=== PATIENT | female | born 1965 | race Caucasian/White ===

== ENCOUNTER 2018-02-15 05:33 | Day surgery (SDC) | payer BC ==
[2018-02-01 15:44] VITALS: Ht 177.8 cm; Wt 68.2 kg
[~2018-02-15] VITALS: Ht 177.8 cm; Wt 68.2 kg
[~2018-02-15 05:33] MED LIST: BIOTCAP2 PO; CALC600T9 PO; FERR1TAB23 PO; LEVO1IUD2 VAGRING; MULT-506 PO; ONDA-170 PO
[2018-02-15] MEDS ORDERED: CEFAZOLIN 2000MG IV PUSH 15 ML IV SCH (06:00)
[2018-02-15] MEDS ORDERED: LACTATED RINGER'S 1000ML 1,000 ML IV SCH (06:00)
[2018-02-15 06:03] VITALS: BP 123/59; PULSE 71; TEMP 37.3; O2SAT 100
[2018-02-15] MEDS ORDERED: LIDOCAINE HCL 1% 20 ML VIAL ONE (06:33)
[2018-02-15] MEDS ORDERED: BUPIVACAINE 0.5 % 5 MG/1 ML MPF 30ML VIAL ONE (06:34)
[2018-02-15] MEDS ORDERED: BACITRACIN OINT 15 GM TUBE ONE (06:34)
[2018-02-15] MEDS ORDERED: MIDAZOLAM HCL 1 MG/ML 2ML VIAL ONE (06:37)
[2018-02-15] MEDS ORDERED: FENTANYL CITRATE INJ 50 MCG/1 ML 2 ML VIAL ONE (06:37)
[2018-02-15] MEDS ORDERED: PROPOFOL IV EMULSION 10 MG/ML 20 ML VIAL ONE ×2 (06:44→07:15)
--- NOTE | 2018-02-15 06:44 | History & Physical Bridge Note ---
H&P Re-Evaluation Bridge Note: I have examined the patient, reviewed the History & Physical and in the interval since the performance of the History & Physical I have noted the following changes of clinical significance: No changes noted
--- NOTE | 2018-02-15 07:41 | [facility] Post Operative Brief Note ---
Immediate Operative Summary Operative Date February 15, 2018. Pre-Operative Diagnosis Lymphoma; Need for Infusaport Post-Operative Diagnosis Lymphoma; Need for Infusaport Procedure(s) Performed Left Infusaport Insertion on left subclain vein Surgeon Dr Hummel Swing Manager Surgeon(s) Armida Rand PA-C Estimated Blood Loss 5ml Findings Consistent with Post-Op Diagnosis Fluids (cc crystalloids) 500ml Specimens None per surgeon Drains None Anesthesia Type Local Complication(s) none Disposition Accompanied Pt To Recover: yes Disposition: Recovery Room / PACU
[2018-02-15 07:50] VITALS: BP 119/56; PULSE 75; TEMP 36.5; O2SAT 100
[2018-02-15] MEDS ORDERED: OXYC-57 PO (07:53)
--- NOTE | 2018-02-15 07:58 | Discharge Instructions ---
Discharge Instructions Date of Service February 15, 2018. 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 Instructions / Follow-Up Instructions / Follow-Up You may shower in 4 days, sponge bath and wash hair in meantime. Try to keep dressing clean and dry for 4 days and then remove. Leave steri strips on incision for 7 days and then remove. If they plan to use your port for chemotherapy before 4 days that is okay. They will replace dressing. Just keep clean,dry, and covered. You will be given narcotic pain medication for moderate to severe pain. Take as directed. This medication may make you drowsy and can cause constipation. To combat constipation: -Drink plenty of water daily - May take OTC stool softener such as Colace - May take gentle laxative or prune juice if needed If you do not feel you need the narcotic pain medication, you may take extra strength Tylenol or Ibuprofen as needed for pain. Follow-up in surgical office as scheduled, please call office at [phone] to make an appointment if you do not already have one Current Hospital Diet Patient's current hospital diet: Discharge Diet Recommended Diet: Regular Diet Procedures Procedures Performed: Left Infusaport Insertion on left subclain vein Pending Studies Studies pending at discharge: no Medical Emergencies . Who to Call and When: Medical Emergencies: If at any time you feel your situation is an emergency, please call 911 immediately. . Non-Emergent Contact Non-Emergency issues call your: Primary Care Provider, Surgeon Call Non-Emergent contact if: you have a fever, temperature is above 101, your pain is not controlled, your pain is worsening, your pain is unusual for you, wound has increased drainage, wound has increased redness, wound has increased pain . "Provider Documentation" section prepared by Armida Rand. . [place] Drug Monitoring Program Search Results: patient reviewed within database, no issues identified
[2018-02-15] MEDS ORDERED: MoRPHine SULFATE 2 MG/ML CARP IV PRN ×2 (08:00)
[2018-02-15] MEDS ORDERED: MoRPHine SULFATE 4 MG/ML 1 ML CARP\\VIAL IV PRN (08:00)
[2018-02-15] MEDS ORDERED: IBUPROFEN 200 MG TAB PO PRN (08:00)
[2018-02-15] MEDS ORDERED: ONDANSETRON INJ 2 MG/ML 2 ML VIAL IV PRN (08:00)
[2018-02-15] MEDS ORDERED: OXYCODONE/ACETAMINOPHEN 5-325 TAB PO PRN ×2 (08:00)
[2018-02-15] MEDS ORDERED: ACETAMINOPHEN 325 MG TAB PO PRN (08:00)
[2018-02-15 08:20] VITALS: BP 120/55; PULSE 77; TEMP 36.2; O2SAT 100
[2018-02-15] MEDS ORDERED: IBUPROFEN 200 MG TAB ONE (08:31)
--- NOTE | 2018-02-15 08:36 | Anesthesiology Progress Note ---
Anesthesia Post Op Note Date & Time February 15, 2018 at 08:36 Vital Signs Pain Intensity: 2.0 Vital Signs Past 12 Hours Date Time Temp Pulse Resp B/P (MAP) Pulse Ox O2 Delivery O2 Flow Rate FiO2 02/15/18 08:20 36.2 77 18 120/55 100 Room Air 02/15/18 07:50 36.5 75 18 119/56 100 Room Air 02/15/18 06:03 37.3 71 18 123/59 (80) 100 Room Air Notes Mental Status: alert / awake / arousable, participated in evaluation Pt Amnestic to Procedure: Yes Nausea / Vomiting: adequately controlled Pain: adequately controlled Airway Patency, RR, SpO2: stable & adequate BP & HR: stable & adequate Hydration State: stable & adequate Anesthetic Complications: no major complications apparent
--- NOTE | 2018-02-15 09:28 | OPERATIVE REPORT ---
DATE OF OPERATION: 02/15/2018 PREOPERATIVE DIAGNOSIS: The patient needs port insertion for chemotherapy. POSTOPERATIVE DIAGNOSIS: The patient needs port insertion for chemotherapy. OPERATION: Insertion of port in the left subclavian vein. SURGEON: Magan Hummel MD DRIVER SERVICE TECHNICIAN: FERNANDA Meraz ANESTHESIA: Local. ESTIMATED BLOOD LOSS: About 5 mL. FINDINGS: Patent left subclavian vein. COMPLICATIONS: None. INDICATIONS FOR THE PROCEDURE: This is a 52 years old female who is referred for a port insertion for chemotherapy. I did talk to the patient about the benefit, risk, and alternate to the procedure. I indicated the risks may include but not limited such as bleeding, infection, injury to the lung, dysfunction of catheter, blood clot. The patient understands. She signed informed consent and I answered all questions. DETAILS OF PROCEDURE: We brought the patient to the OR and put the patient in the supine position. The patient received SCDs on bilateral legs to prevent DVT. Also, the patient received 2 g Ancef IV for prophylactic antibiotic. Then the patient's left side of the chest and neck was prepped and draped in routine sterile fashion. After time out, we put the patient in Trendelenburg position and injected local on the left side of the upper chest wall by using 1% lidocaine mixed with 0.5% Marcaine. Then, we used a 16-gauge needle to puncture the left subclavian vein easily with blood return. We passed the wire and then made about a 2.5 cm incision to create a pouch. Hemostasis was obtained. Then, we used a sheath, passed the wire, and then we removed the dilator with wire, and left the sheath in. Then we passed the catheter. Once the wire was in, we used fluoro to confirm the wire tip located in superior vena cava. Then we passed the catheter through the sheath and we removed the sheath and again used the fluoro to confirm the catheter tip located in the subclavian vein. Then we used 2-0 Prolene to fix the port in 3 points on the chest wall and then we closed the subcutaneous layer by using 2-0 Vicryl continuous running, closed skin by using 4-0 Vicryl continuous running, and then we used a needle to puncture the port easily, blood returned, and injected 2 mL of heparin in the port and we put the dressing on. The patient tolerated the procedure well. All the instrument, needle, and sponge count were correct x2 at the end of the case and after the procedure, the patient was transferred to the recovery room in stable condition. Also, I gave the patient postop care instructions. I attest to the content of the Intraoperative Record and any orders documented therein. Any exceptions are noted below. DCD
[2018-02-16] MEDS ORDERED: CEFAZOLIN SOD 2000MG/15 ML IV PUSH IV ONE (06:00)
== END 2018-02-15 08:38 | disposition home or self-care (01) ==
LOC: C.ACU 05:33
PROVIDERS: ATTEND Surgery
DX: C82.18 Follicular lymphoma grade II, lymph nodes of multiple sites (principal); E04.2 Nontoxic multinodular goiter; C73 Malignant neoplasm of thyroid gland; E89.0 Postprocedural hypothyroidism; Z80.3 Family history of malignant neoplasm of breast; Z83.49 Family history of other endocrine, nutritional and metabolic diseases; Z29.8 Encounter for other specified prophylactic measures; Z79.899 Other long term (current) drug therapy; Z79.52 Long term (current) use of systemic steroids

== ENCOUNTER 2018-12-02 10:59 | Inpatient (IN) ==
[2018-12-02] MEDS ORDERED: CEFEPIME 2,000 MG in SYRINGE 7.5 ML IV STA (11:40)
[2018-12-02] MEDS ORDERED: SODIUM CHLORIDE 0.9% 1000ML 2,000 ML IV ONE (11:40)
[2018-12-02] MEDS ORDERED: IBUPROFEN 600 MG TAB PO STA (11:40)
--- NOTE | 2018-12-02 11:58 | XRay Report ---
XR chest 1V portable CLINICAL HISTORY: Sepsis COMPARISON STUDY: No previous studies for comparison. FINDINGS: Left subclavian [id number] is in place. There is no pneumothorax or pleural effusion. Th ere is mild opacity within the medial right lung base. Left lung is clear. No evidence for pulmonary edema. Cardiac size is at the upper limits of normal. IMPRESSION: Mild opacity within the medial right lung base which may reflect pneumonia or atelectasi s. Radiographic follow-up is recommended to ensure resolution. Electronically signed by: Khris Stovall M.D. 12/02/2018 11:56 AM
[2018-12-02 12:02] LABS: Appearance Urine Cloudy (Clear); Bacteria Urine Automated Negative (Negative); Bilirubin Urine Negative (Negative); Epithelial Cell Urine Auto >30 /lpf (0-5); Glucose Urine UA Negative (Negative); Ketones Urine Negative (Negative); Leukocyte Esterase Urine Negative (Negative); Nitrite Urine Negative (Negative); Protein Urine 2+ (Negative); Specific Gravity Urine 1.019 (1.000-1.030); Urobilinogen Urine Negative (Negative)
[2018-12-02 12:03] LABS: Color Urine Amber
[2018-12-02 12:13] LABS: Renal Epithelial Cells Urine 0-5 /lpf (0-5)
[2018-12-02 12:51] LABS: Hematocrit (blood only) 29.1 % (37-47); Hemoglobin 9.9 g/dL (12.0-16.0); Mean Corpuscular Volume 86.6 fL (80-100); Mean Platelet Volume 11.2 fL (7.4-10.4); Platelet Count 105 K/uL (130-400); RDW Coefficient of Variation 12.9 % (11.5-14.5); RDW Standard Deviation 41.3 fL (36.4-46.3); Red Blood Count 3.36 M/uL (4.2-5.4); White Blood Count 1.45 K/uL (4.8-10.8)
[2018-12-02 12:57] LABS: INR 1.2 (0.9-1.1); Partial Thromboplastin Ratio 1.4; Partial Thromboplastin Time 36.8 Seconds (21.0-31.0); Prothrombin Time 12.3 Seconds (9.0-12.0)
[2018-12-02 13:04] LABS: Alanine Aminotransferase 18 U/L (12-78); Albumin Globulin Ratio 0.9 (0.9-2); Albumin Level 2.8 gm/dl (3.4-5.0); Alkaline Phosphatase 43 U/L (45-117); BUN Creatinine Ratio 16.3 (10-20); Bilirubin,Total 0.8 mg/dl (0.2-1); Blood Urea Nitrogen 18 mg/dl (7-18); Calcium 8.3 mg/dl (8.5-10.1); Carbon Dioxide 26 mmol/L (21-32); Chloride 98 mmol/L (98-107); Est GFR (African American) 66.8; Est GFR (Non-African American) 57.7; Globulin 3.3 gm/dl (2.5-4.0); Glucose 103 mg/dl (70-99); Sodium 131 mmol/L (136-145); Total Protein 6.1 gm/dl (6.4-8.2)
[2018-12-02 13:16] LABS: Basophils # (manual) 0.03 K/uL (0-0.2); Basophils % (manual) 1.8 %; Eosinophils # (manual) 0.04 K/uL (0-0.5); Lymphocytes % (manual) 34.2 %; Monocytes # (manual) 0.88 K/uL (0.11-0.59); Monocytes % (manual) 60.5 %; Neutrophils % (manual) 0.9 %
[2018-12-02 13:35] LABS: Potassium 3.7 mmol/L (3.5-5.1)
[2018-12-02 13:40] LABS: Magnesium 1.8 mg/dl (1.8-2.4)
--- NOTE | 2018-12-02 15:30 | History & Physical Report ---
Date of Service December 02, 2018 Assessment & Plan (1) Neutropenic fever: (2) Pancytopenia: (3) Follicular lymphoma: Hx follicular lymphoma. Follows with Dr Shay. Last chemo (obinutuzumab) was 08/2018. 10/2018 became neutropenic Had bone marrow biopsy at [facility] by Dr Gamez on 11/29/18 Presented to ER with c/o fever/chills, rigors, decreased appetite x 3 days, and 2 episodes vomiting In ER T: 38.3, P: 96-101, R: 16-26, BP: 94/52. WBC: 1.4 (was 1.5 on 11/28/18). RBC: 3.3 (was 4.1), Hgb: 9.9 (was 12.3), Plt:105 (197), Neut: 0.01. Negative influenza swab. UA: appears contaminated. CXR: Mild opacity within the medial right lung base which may reflect pneumonia or atelectasis. Radiographic follow-up is recommended to ensure resolution. -In ER given cefepime, ibuprofen, 2L NSS -pending lactic acid -pending blood cultures, pending urine culture -cefepime, vancomycin -IVF -cbc, bmp in am -heme/oncology consult, appreciate recommendations (4) Hyponatremia: Na: 131. Pt dehydrated, poor oral intake. -IVF -monitor bmp (5) Dehydration: Pt appears dry. Given 2L NSS in ER -IVF DVT Prophylaxis -Lovenox SQ Full Code Follows with Dr Mcmahan for routine care Pt was seen with Dr Bishop. See addendum History of Present Illness Chief Complaint: Fever Primary Care Provider: Lucian Mcmahan MD PT is 53 y/o F with PMH follicular lymphoma, hyperthyroidism, h/o thyroidectomy , presented to ER with c/o fever x 3 days. Pt had bone marrow biopsy at [facility] by Dr Gamez on 11/29/18. Reports later that evening started with chills, rigors and fever. Having decreased appetite, poor oral intake, generalized weakness. Vomited once last night and once this morning. Taking Tylenol and Ibuprofen for fever with limited relief. Follows with Dr Shay-oncology. Last chemo ( obinutuzumab) was 08/2018. 10/2018 became neutropenic. Denies ill contacts. Denies diarrhea, dizziness, syncope, vision changes, neck pain, neck stiffness, CP, SOB, orthopnea, palpitations, cough, sore throat, choking, otalgia, rhinorrhea, abdominal pain, paresthesias, extremity edema, rashes, urinary symptoms. Allergies Allergy/AdvReac Type Severity Reaction Status Date / Time No Known Allergies Allergy Unverified 12/02/18 12:41 Home Medications Home Medications Medication Instructions Recorded Confirmed Type acetaminophen [Tylenol Extra 1,000 mg PO Q6H PRN 12/02/18 12/02/18 History Strength] biotin 10,000 mcg PO QAM 12/02/18 12/02/18 History calcium carbonate-vitamin D3 1 tab PO QAM 12/02/18 12/02/18 History [Calcium 500 With D] ferrous sulfate [iron] 325 mg PO QAM 12/02/18 12/02/18 History ibuprofen 400 mg PO QID PRN 12/02/18 12/02/18 History levonorgestrel [Mirena] 1 applic INTRAUTERINE UD 12/02/18 12/02/18 History multivitamin 1 tab PO QAM 12/02/18 12/02/18 History omega 7-yee-bms-fish oil [Fish Oil] 1 cap PO UD PRN 12/02/18 12/02/18 History zinc 50 mg PO QAM 12/02/18 12/02/18 History Past Med/Surg History Medical History Multinodular goiter (Chronic) Hyperthyroidism (Chronic) Follicular lymphoma (Chronic) Non Hodgkin's lymphoma Surgical History History of lymph node biopsy (Resolved) Dr Hummel - 01/2017 - Left inguinal mass, bx; dx follicular lymphoma, grade 2 History of bone marrow biopsy (Resolved) 11/29/18 - [facility] - Dr Gamez History of partial thyroidectomy (Resolved) R lobectomy and isthmusectomy, Right and central lymph node dissection Family History Other Cancer Goiter Social History marital status: Current Living Situation: Spouse Other Information That Helps Us Care for You: No Feels Safe at Home: Yes Safety Concerns: Feels Safe At This Time Smoking Status: Never smoker Hx Alcohol Use: No Hx Substance Use: No Beliefs That Will Affect Care: None Preferred Language: Tamaz[place] Communication Ability: Effective Blueprint Reproducer Required: No Review of Systems All systems reviewed & are unremarkable except as noted in HPI & below Physical Exam 2 Vital Signs (Past 24 Hours): Last Vital Signs Temp 37.1 C 12/02/18 13:20 Pulse 78 12/02/18 14:01 Resp 25 H 12/02/18 14:01 BP 91/50 L 12/02/18 14:01 Pulse Ox 97 12/02/18 14:01 Physical Exam: General: no acute distress, WDWN Head: normocephalic, atraumatic Eyes: PERRL, EOM's intact, conjunctiva non-injected, anicteric ENT: normal inspection external ears, nose, mucous membranes dry Neck: supple, trachea midline, non-tender, ROM intact Lungs: clear, no respiratory distress, no wheezing/rhonchi/rales CV: RRR, no murmur, no pretibial edema Abd: normal BS, soft, non-tender Ext: no cyanosis, no calf tenderness Neuro: A&O x 3, no focal deficits noted, normal affect Skin: warm, dry Results & Data Laboratory Results Short CBC 12/02/18 Range/Units 12:20 WBC 1.45 L (4.8-10.8) K/uL Hgb 9.9 L (12.0-16.0) g/dL Hct 29.1 L (37-47) % Plt Count 105 L (130-400) K/uL BMP 12/02/18 12/02/18 12:20 13:07 Sodium 131 L Potassium 3.7 Chloride 98 Carbon Dioxide 26 BUN 18 Creatinine 1.10 Glucose 103 H Calcium 8.3 L Liver Function 12/02/18 12/02/18 Range/Units 12:20 13:07 Total Bilirubin 0.8 (0.2-1) mg/dl AST 10 L (15-37) U/L ALT 18 (12-78) U/L Alkaline Phosphatase 43 L (45-117) U/L Albumin 2.8 L (3.4-5.0) gm/dl Urine 12/02/18 Range/Units 11:25 Urine Color Xin Urine Appearance Cloudy H (Clear) Urine pH 5.0 (4.5-7.5) Ur Specific [place] 1.019 (1.000-1.030) Urine Protein 2+ H (Negative) Urine Glucose (UA) Negative (Negative) Diagnostic Findings CXR: IMPRESSION: Mild opacity within the medial right lung base which may reflect pneumonia or atelectasis. Radiographic follow-up is recommended to ensure resolution. Supervising Physician Co-Signing Physician Notes Pt was seen and examined. Agreed with Yesica exam, assessment and Plan. 53 y/o F with PMH follicular lymphoma, hyperthyroidism, h/o thyroidectomy, presented to ER with c/o fever and chills for 3 days. Lab done in the ER showed neutropenia. Received in the ER. Will add IV vanco for now. Blood cx and urine cc collected in the ER pending. Continue IVF. Will put on neutropenic precaution. Continue monitor closely. MD Edna
--- NOTE | 2018-12-02 16:59 | Emergency Department Note ---
Entered by Hussein Robison acting as a scribe for History of Present Illness General Chief complaint: Fever Stated complaint: FEVER WBC 1.5 Time Seen by Provider: 12/02/18 11:33 Source: patient Limitations: no limitations History of Present Illness Provider complaint: Fever Onset (ago): day(s) (3) Location: head Pain Consistency: + other (persistent) Maximum Pain Intensity: 8 Quality: + aching (NEWSOME) Associated symptoms: + denies other symptoms (No sorethroat, no urianry issues) , + fever/chills and + headaches; no cough Treatments prior to arrival: other (Tylenol, Advil) The patient is a 53 year old female who presents to the Emergency Room with complaints of a persistent fever that began about 3 days ago. The patient is currently being treated for Non-Hodgkin's Lymphoma with a monoclonal antibody treatment. The treatment was scheduled to be given every 2 months, but was stopped in August as she was Neutropenic. The patient notes that her fever onset Wednesday, 3 days ago and she has recorded a peak temperature of 102.7 degrees. She has been taking Tylenol and Advil, with her last dosage of Tylenol being 2x 500 mg tablets this morning at 1000, 1.5 hours ago. The patient is still febrile post Tylenol dosage. She does complain of a headache but denies any cough, sore throat, urinary issues, or diarrhea. The patient does add that she feels very "dizzy and tachycardic" when she stands up/changes position. She notes that it has been a challenge to get fluids and foods down recently as well. She is not on any antibiotics currently and did not get a influenza shot this year. The patient was seen by oncology in [place] 3 days ago for a bone marrow biopsy. She adds that the "results were good so far." Home Medications Home Medications Medication Instructions Recorded Confirmed Type acetaminophen [Tylenol Extra 1,000 mg PO Q6H PRN 12/02/18 12/02/18 History Strength] biotin 10,000 mcg PO QAM 12/02/18 12/02/18 History calcium carbonate-vitamin D3 1 tab PO QAM 12/02/18 12/02/18 History [Calcium 500 With D] ferrous sulfate [iron] 325 mg PO QAM 12/02/18 12/02/18 History ibuprofen 400 mg PO QID PRN 12/02/18 12/02/18 History levonorgestrel [Mirena] 1 applic INTRAUTERINE UD 12/02/18 12/02/18 History multivitamin 1 tab PO QAM 12/02/18 12/02/18 History omega 1-emn-vqo-fish oil [Fish Oil] 1 cap PO UD PRN 12/02/18 12/02/18 History zinc 50 mg PO QAM 12/02/18 12/02/18 History Allergies Allergy/AdvReac Type Severity Reaction Status Date / Time No Known Allergies Allergy Unverified 12/02/18 12:41 Past Med/Surg History Medical History Multinodular goiter (Chronic) Hyperthyroidism (Chronic) Follicular lymphoma (Chronic) Non Hodgkin's lymphoma Surgical History History of lymph node biopsy (Resolved) Dr Hummel - 01/2017 - Left inguinal mass, bx; dx follicular lymphoma, grade 2 History of bone marrow biopsy (Resolved) 11/29/18 - [place] - Dr Gamez History of partial thyroidectomy (Resolved) R lobectomy and isthmusectomy, Right and central lymph node dissection Family History Other Cancer Goiter Social History marital status: Current Living Situation: Spouse Feels Safe at Home: Yes Smoking Status: Never smoker Hx Alcohol Use: No Hx Substance Use: No Preferred Language: Hungarian Review of Systems See HPI for pertinent positives & negatives. and A total of 10 systems reviewed and were otherwise negative Physical Exam Vital Signs Vital Signs - 24 hr 12/02/18 11:12 12/02/18 11:23 12/02/18 11:26 Temperature 38.3 C H Temperature Source Oral Sepsis Recent Fever Within 48 Hours No Sepsis New/Unexplained Change in Mental Status No Sepsis Action Taken by Nursing No Action Required Pulse Rate 96 H 101 H Pulse Rate [Finger] Respiratory Rate 16 26 H 20 Respiratory Effort / Characteristics Non-Labored Respiratory Depth Normal Blood Pressure 94/52 L 113/52 L Blood Pressure [Left Arm] Blood Pressure Mean 66 72 Blood Pressure Mean [Left Arm] Pulse Oximetry 99 100 100 Oxygen Delivery Method Room Air 12/02/18 11:28 12/02/18 11:30 12/02/18 11:40 Temperature Temperature Source Sepsis Recent Fever Within 48 Hours Sepsis New/Unexplained Change in Mental Status Sepsis Action Taken by Nursing Pulse Rate 93 H 95 H Pulse Rate [Finger] Respiratory Rate 24 22 Respiratory Effort / Characteristics Respiratory Depth Blood Pressure Blood Pressure [Left Arm] Blood Pressure Mean Blood Pressure Mean [Left Arm] Pulse Oximetry 99 97 99 Oxygen Delivery Method Room Air 12/02/18 11:45 12/02/18 11:50 12/02/18 12:00 Temperature Temperature Source Sepsis Recent Fever Within 48 Hours Sepsis New/Unexplained Change in Mental Status Sepsis Action Taken by Nursing Pulse Rate 92 H Pulse Rate [Finger] Respiratory Rate 20 Respiratory Effort / Characteristics Respiratory Depth Blood Pressure Blood Pressure [Left Arm] Blood Pressure Mean Blood Pressure Mean [Left Arm] Pulse Oximetry 98 99 100 Oxygen Delivery Method Room Air 12/02/18 12:09 12/02/18 12:10 12/02/18 12:11 Temperature Temperature Source Sepsis Recent Fever Within 48 Hours Sepsis New/Unexplained Change in Mental Status Sepsis Action Taken by Nursing Pulse Rate Pulse Rate [Finger] Respiratory Rate Respiratory Effort / Characteristics Respiratory Depth Blood Pressure 113/52 L 113/52 L Blood Pressure [Left Arm] Blood Pressure Mean 72 72 Blood Pressure Mean [Left Arm] Pulse Oximetry 100 100 99 Oxygen Delivery Method 12/02/18 12:21 12/02/18 12:27 12/02/18 12:30 Temperature Temperature Source Sepsis Recent Fever Within 48 Hours Sepsis New/Unexplained Change in Mental Status Sepsis Action Taken by Nursing Pulse Rate 90 85 Pulse Rate [Finger] Respiratory Rate 17 22 Respiratory Effort / Characteristics Respiratory Depth Blood Pressure 93/54 L Blood Pressure [Left Arm] Blood Pressure Mean 67 Blood Pressure Mean [Left Arm] Pulse Oximetry 99 100 Oxygen Delivery Method 12/02/18 12:31 12/02/18 12:40 12/02/18 12:50 Temperature Temperature Source Sepsis Recent Fever Within 48 Hours Sepsis New/Unexplained Change in Mental Status Sepsis Action Taken by Nursing Pulse Rate 85 84 80 Pulse Rate [Finger] Respiratory Rate 23 26 H 16 Respiratory Effort / Characteristics Respiratory Depth Blood Pressure 103/47 L Blood Pressure [Left Arm] Blood Pressure Mean 65 Blood Pressure Mean [Left Arm] Pulse Oximetry 99 100 Oxygen Delivery Method 12/02/18 13:00 12/02/18 13:01 12/02/18 13:02 Temperature Temperature Source Sepsis Recent Fever Within 48 Hours Sepsis New/Unexplained Change in Mental Status Sepsis Action Taken by Nursing Pulse Rate 79 78 79 Pulse Rate [Finger] Respiratory Rate 16 10 L 19 Respiratory Effort / Characteristics Respiratory Depth Blood Pressure 79/56 L 88/50 L Blood Pressure [Left Arm] Blood Pressure Mean 63 62 Blood Pressure Mean [Left Arm] Pulse Oximetry 100 100 100 Oxygen Delivery Method 12/02/18 13:03 12/02/18 13:10 12/02/18 13:20 Temperature 37.1 C Temperature Source Sepsis Recent Fever Within 48 Hours Sepsis New/Unexplained Change in Mental Status Sepsis Action Taken by Nursing Pulse Rate 76 78 76 Pulse Rate [Finger] Respiratory Rate 15 22 23 Respiratory Effort / Characteristics Respiratory Depth Blood Pressure Blood Pressure [Left Arm] Blood Pressure Mean Blood Pressure Mean [Left Arm] Pulse Oximetry 100 100 100 Oxygen Delivery Method 12/02/18 13:30 12/02/18 13:31 12/02/18 13:40 Temperature Temperature Source Sepsis Recent Fever Within 48 Hours Sepsis New/Unexplained Change in Mental Status Sepsis Action Taken by Nursing Pulse Rate 75 77 77 Pulse Rate [Finger] Respiratory Rate 20 25 H 18 Respiratory Effort / Characteristics Respiratory Depth Blood Pressure 94/54 L Blood Pressure [Left Arm] Blood Pressure Mean 67 Blood Pressure Mean [Left Arm] Pulse Oximetry 100 100 100 Oxygen Delivery Method 12/02/18 13:50 12/02/18 14:00 12/02/18 14:01 Temperature Temperature Source Sepsis Recent Fever Within 48 Hours Sepsis New/Unexplained Change in Mental Status Sepsis Action Taken by Nursing Pulse Rate 79 77 78 Pulse Rate [Finger] Respiratory Rate 22 24 25 H Respiratory Effort / Characteristics Respiratory Depth Blood Pressure 91/50 L Blood Pressure [Left Arm] Blood Pressure Mean 63 Blood Pressure Mean [Left Arm] Pulse Oximetry 100 99 97 Oxygen Delivery Method 12/02/18 14:02 12/02/18 14:10 12/02/18 14:20 Temperature Temperature Source Sepsis Recent Fever Within 48 Hours Sepsis New/Unexplained Change in Mental Status Sepsis Action Taken by Nursing Pulse Rate 77 78 78 Pulse Rate [Finger] Respiratory Rate 23 14 22 Respiratory Effort / Characteristics Respiratory Depth Blood Pressure Blood Pressure [Left Arm] Blood Pressure Mean Blood Pressure Mean [Left Arm] Pulse Oximetry 98 98 98 Oxygen Delivery Method 12/02/18 14:30 12/02/18 14:40 12/02/18 14:50 Temperature 37.0 C Temperature Source Sepsis Recent Fever Within 48 Hours Sepsis New/Unexplained Change in Mental Status Sepsis Action Taken by Nursing Pulse Rate 74 74 71 Pulse Rate [Finger] Respiratory Rate 20 20 13 Respiratory Effort / Characteristics Respiratory Depth Blood Pressure 86/43 L Blood Pressure [Left Arm] Blood Pressure Mean 57 Blood Pressure Mean [Left Arm] Pulse Oximetry 98 98 98 Oxygen Delivery Method 12/02/18 15:00 12/02/18 15:14 12/02/18 15:20 Temperature Temperature Source Sepsis Recent Fever Within 48 Hours Sepsis New/Unexplained Change in Mental Status Sepsis Action Taken by Nursing Pulse Rate 77 75 75 Pulse Rate [Finger] Respiratory Rate 19 15 15 Respiratory Effort / Characteristics Respiratory Depth Blood Pressure 89/51 L Blood Pressure [Left Arm] Blood Pressure Mean 63 Blood Pressure Mean [Left Arm] Pulse Oximetry 100 100 Oxygen Delivery Method 12/02/18 15:30 12/02/18 15:31 12/02/18 15:32 Temperature Temperature Source Sepsis Recent Fever Within 48 Hours Sepsis New/Unexplained Change in Mental Status Sepsis Action Taken by Nursing Pulse Rate 76 79 76 Pulse Rate [Finger] Respiratory Rate 15 13 13 Respiratory Effort / Characteristics Respiratory Depth Blood Pressure 96/50 L Blood Pressure [Left Arm] Blood Pressure Mean 65 Blood Pressure Mean [Left Arm] Pulse Oximetry 100 100 100 Oxygen Delivery Method 12/02/18 15:40 12/02/18 15:50 12/02/18 16:00 Temperature Temperature Source Sepsis Recent Fever Within 48 Hours Sepsis New/Unexplained Change in Mental Status Sepsis Action Taken by Nursing Pulse Rate 75 76 73 Pulse Rate [Finger] Respiratory Rate 10 L 16 27 H Respiratory Effort / Characteristics Respiratory Depth Blood Pressure 91/48 L Blood Pressure [Left Arm] Blood Pressure Mean 62 Blood Pressure Mean [Left Arm] Pulse Oximetry 98 100 100 Oxygen Delivery Method 12/02/18 16:10 12/02/18 16:20 12/02/18 16:30 Temperature Temperature Source Sepsis Recent Fever Within 48 Hours Sepsis New/Unexplained Change in Mental Status Sepsis Action Taken by Nursing Pulse Rate 74 72 70 Pulse Rate [Finger] Respiratory Rate 24 13 9 L Respiratory Effort / Characteristics Respiratory Depth Blood Pressure Blood Pressure [Left Arm] Blood Pressure Mean Blood Pressure Mean [Left Arm] Pulse Oximetry 100 100 100 Oxygen Delivery Method 12/02/18 16:31 12/02/18 16:32 12/02/18 16:33 Temperature Temperature Source Sepsis Recent Fever Within 48 Hours Sepsis New/Unexplained Change in Mental Status Sepsis Action Taken by Nursing Pulse Rate 73 73 73 Pulse Rate [Finger] Respiratory Rate 14 17 15 Respiratory Effort / Characteristics Respiratory Depth Blood Pressure 59/37 L 72/53 L 89/48 L Blood Pressure [Left Arm] Blood Pressure Mean 44 59 61 Blood Pressure Mean [Left Arm] Pulse Oximetry 100 98 98 Oxygen Delivery Method 12/02/18 16:35 12/02/18 16:40 12/02/18 16:50 Temperature Temperature Source Sepsis Recent Fever Within 48 Hours Sepsis New/Unexplained Change in Mental Status Sepsis Action Taken by Nursing Pulse Rate 73 74 Pulse Rate [Finger] 74 Respiratory Rate 16 18 17 Respiratory Effort / Characteristics Respiratory Depth Normal Blood Pressure Blood Pressure [Left Arm] 89/48 L Blood Pressure Mean Blood Pressure Mean [Left Arm] 61 Pulse Oximetry 97 97 100 Oxygen Delivery Method Room Air GENERAL: Patient is in no acute distress. HEENT: No acute trauma, normocephalic atraumatic, mucous membranes dry, no nasal congestion, no scleral icterus. No throat erythema. NECK: No stridor, no adenopathy, no meningismus, trachea is midline. LUNGS: Clear to auscultation bilaterally, no wheeze, no rhonchi, breath sounds equal. HEART: Without murmurs gallops or rubs, regular rate and rhythm. ABDOMEN: Soft, nontender, bowel sounds positive, no hernias, no peritonitis. EXTREMITIES: No cyanosis or edema, full range of motion of all the joints without pain or difficulty, no signs for acute trauma. NEUROLOGIC: Oriented x 3, no acute motor or sensory deficits, no focal weakness. : There is significant inguinal adenopathy noted, greater on the left. SKIN: No jaundice, no diaphoresis. There are erythematous, slightly raised, papular lesions across the lower abdomen. Course 1135: Past medical records reviewed. The patient was evaluated in room C7, and a complete history and physical examination were performed. 1331: The patient's lab results from 11/28 show a white blood cell count of 1.55 , hemoglobin of 12.3, platelet count of 197, and ANC of 0.03 1336: I updated the patient at this time. She believes that her symptoms feel viral. She notes that her symptoms all began after her biopsy. 1353: I reviewed the patient's case with Dr. Molina - Oncology. He suggests the patient be admitted for IV antibiotics. 1356: I paged the [facility] service for admission. 2001: I reviewed the patient's case with Aliza Davis - [facility] Hospitalist [place]. She will evaluate the patient for further management. Consultations Consultation #1: 1353: I reviewed the patient's case with Dr. Molina - Oncology. He suggests the patient be admitted for IV antibiotics. Consultation #2: 2001: I reviewed the patient's [facility]. She will evaluate the patient for further management. Administered Medications Discontinued Medications Cefepime HCl 2,000 mg/ Syringe 20 mls @ 5.5 mls/min IV NOW STA Stop: 12/02/18 11:43 Last Admin: 12/02/18 12:13 Dose: 5.5 mls/min Sodium Chloride (Nss 1000ml) 2,000 mls @ 999 mls/hr IV .Q2H1M ONE Stop: 12/02/18 13:40 Last Infusion: 12/02/18 14:07 Dose: 0 mls/hr Admin: 12/02/18 12:13 Dose: 999 mls/hr Ibuprofen (Motrin) 600 mg PO NOW STA Stop: 12/02/18 11:41 Last Admin: 12/02/18 11:56 Dose: 600 mg Medical Decision Making Differential Diagnosis Differential Diagnosis includes: Influenza, flu-like illness, bacteremia, sepsis, dehydration, UTI, neutropenia, pneumonia, electrolyte or metabolic abnormality. Medical Records Attestation: I reviewed the patient's medical records. Home Medications Current Medication List: was personally reviewed by me Laboratory Data Attestation: I reviewed the patient's lab results. Result diagrams: 12/02/18 12:20 12/02/18 13:07 Lab Results 12/02/18 12/02/18 12/02/18 Range/Units 11:25 11:49 12:20 WBC 1.45 L (4.8-10.8) K/uL RBC 3.36 L (4.2-5.4) M/uL Hgb 9.9 L (12.0-16.0) g/dL Hct 29.1 L (37-47) % MCV 86.6 (80-100) fL MCH 29.5 (25-34) pg MCHC 34.0 (32-36) g/dL RDW Std Deviation 41.3 (36.4-46.3) fL RDW Coeff of Neil 12.9 (11.5-14.5) % Plt Count 105 L (130-400) K/uL MPV 11.2 H (7.4-10.4) fL Neutrophils % (Manual) 0.9 % Lymphocytes % (Manual) 34.2 % Monocytes % (Manual) 60.5 % Eosinophils % (Manual) 2.6 % Basophils % (Manual) 1.8 % Neutrophils # (Manual) 0.01 L (1.4-6.5) K/uL Total Absolute Neuts 0.01 L* (1.4-6.5) K/uL Lymphocytes # (Manual) 0.50 L (1.2-3.4) K/uL Total Abs Lymphocytes 0.50 L (1.2-3.4) K/uL Monocytes # (Manual) 0.88 H (0.11-0.59) K/uL Eosinophils # (Manual) 0.04 (0-0.5) K/uL Basophils # (Manual) 0.03 (0-0.2) K/uL PT (9.0-12.0) Seconds INR (0.9-1.1) APTT (21.0-31.0) Seconds PTT Ratio Sodium (136-145) mmol/L Potassium (3.5-5.1) mmol/L Chloride (98-107) mmol/L Carbon Dioxide (21-32) mmol/L Anion Gap (3-11) BUN (7-18) mg/dl Creatinine (0.6-1.2) mg/dl Est Cr Clr Drug Dosing Est GFR ( Amer) Est GFR (Non-Af Amer) BUN/Creatinine Ratio (10-20) Glucose (70-99) mg/dl Lactate (0.4-2.0) mmol/L Calcium (8.5-10.1) mg/dl Magnesium (1.8-2.4) mg/dl Total Bilirubin (0.2-1) mg/dl AST (15-37) U/L ALT (12-78) U/L Alkaline Phosphatase (45-117) U/L Total Protein (6.4-8.2) gm/dl Albumin (3.4-5.0) gm/dl Globulin (2.5-4.0) gm/dl Albumin/Globulin Ratio (0.9-2) Urine Color Xin Urine Appearance Cloudy H (Clear) Urine pH 5.0 (4.5-7.5) Ur Specific Keenes 1.019 (1.000-1.030) Urine Protein 2+ H (Negative) Urine Glucose (UA) Negative (Negative) Urine Ketones Negative (Negative) Urine Blood 1+ H (Negative) Urine Nitrite Negative (Negative) Urine Bilirubin Negative (Negative) Urine Urobilinogen Negative (Negative) Ur Leukocyte Esterase Negative (Negative) Urine WBC (Auto) 1-5 (0-5) /hpf Urine RBC (Auto) 0-4 (0-4) /hpf U Hyaline Cast (Auto) 10-30 H (0-5) /lpf U Epithel Cells (Auto) >30 H (0-5) /lpf Urine Bacteria (Auto) Negative (Negative) Ur Renal Epithelial Cell 0-5 (0-5) /lpf Granular Casts 1-5 H (0) /lpf Urine Yeast Not Reportable Influenza Type A Ag Neg for Influ A (Neg) Influenza Type B Ag Neg for Influ B (Neg) 12/02/18 12/02/18 12/02/18 Range/Units 12:20 12:20 12:20 WBC (4.8-10.8) K/uL RBC (4.2-5.4) M/uL Hgb (12.0-16.0) g/dL Hct (37-47) % MCV (80-100) fL MCH (25-34) pg MCHC (32-36) g/dL RDW Std Deviation (36.4-46.3) fL RDW Coeff of Neil (11.5-14.5) % Plt Count (130-400) K/uL MPV (7.4-10.4) fL Neutrophils % (Manual) % Lymphocytes % (Manual) % Monocytes % (Manual) % Eosinophils % (Manual) % Basophils % (Manual) % Neutrophils # (Manual) (1.4-6.5) K/uL Total Absolute Neuts (1.4-6.5) K/uL Lymphocytes # (Manual) (1.2-3.4) K/uL Total Abs Lymphocytes (1.2-3.4) K/uL Monocytes # (Manual) (0.11-0.59) K/uL Eosinophils # (Manual) (0-0.5) K/uL Basophils # (Manual) (0-0.2) K/uL PT 12.3 H (9.0-12.0) Seconds INR 1.2 H (0.9-1.1) APTT 36.8 H (21.0-31.0) Seconds PTT Ratio 1.4 Sodium 131 L (136-145) mmol/L Potassium (3.5-5.1) mmol/L Chloride 98 (98-107) mmol/L Carbon Dioxide 26 (21-32) mmol/L Anion Gap 7.0 (3-11) BUN 18 (7-18) mg/dl Creatinine 1.10 (0.6-1.2) mg/dl Est Cr Clr Drug Dosing Not Reportable Est GFR ( Amer) 66.8 Est GFR (Non-Af Amer) 57.7 BUN/Creatinine Ratio 16.3 (10-20) Glucose 103 H (70-99) mg/dl Lactate 2.0 (0.4-2.0) mmol/L Calcium 8.3 L (8.5-10.1) mg/dl Magnesium (1.8-2.4) mg/dl Total Bilirubin 0.8 (0.2-1) mg/dl AST (15-37) U/L ALT 18 (12-78) U/L Alkaline Phosphatase 43 L (45-117) U/L Total Protein 6.1 L (6.4-8.2) gm/dl Albumin 2.8 L (3.4-5.0) gm/dl Globulin 3.3 (2.5-4.0) gm/dl Albumin/Globulin Ratio 0.9 (0.9-2) Urine Color Urine Appearance (Clear) Urine pH (4.5-7.5) Ur Specific Keenes (1.000-1.030) Urine Protein (Negative) Urine Glucose (UA) (Negative) Urine Ketones (Negative) Urine Blood (Negative) Urine Nitrite (Negative) Urine Bilirubin (Negative) Urine Urobilinogen (Negative) Ur Leukocyte Esterase (Negative) Urine WBC (Auto) (0-5) /hpf Urine RBC (Auto) (0-4) /hpf U Hyaline Cast (Auto) (0-5) /lpf U Epithel Cells (Auto) (0-5) /lpf Urine Bacteria (Auto) (Negative) Ur Renal Epithelial Cell (0-5) /lpf Granular Casts (0) /lpf Urine Yeast Influenza Type A Ag (Neg) Influenza Type B Ag (Neg) 12/02/18 Range/Units 13:07 WBC (4.8-10.8) K/uL RBC (4.2-5.4) M/uL Hgb (12.0-16.0) g/dL Hct (37-47) % MCV (80-100) fL MCH (25-34) pg MCHC (32-36) g/dL RDW Std Deviation (36.4-46.3) fL RDW Coeff of Neil (11.5-14.5) % Plt Count (130-400) K/uL MPV (7.4-10.4) fL Neutrophils % (Manual) % Lymphocytes % (Manual) % Monocytes % (Manual) % Eosinophils % (Manual) % Basophils % (Manual) % Neutrophils # (Manual) (1.4-6.5) K/uL Total Absolute Neuts (1.4-6.5) K/uL Lymphocytes # (Manual) (1.2-3.4) K/uL Total Abs Lymphocytes (1.2-3.4) K/uL Monocytes # (Manual) (0.11-0.59) K/uL Eosinophils # (Manual) (0-0.5) K/uL Basophils # (Manual) (0-0.2) K/uL PT (9.0-12.0) Seconds INR (0.9-1.1) APTT (21.0-31.0) Seconds PTT Ratio Sodium (136-145) mmol/L Potassium 3.7 (3.5-5.1) mmol/L Chloride (98-107) mmol/L Carbon Dioxide (21-32) mmol/L Anion Gap (3-11) BUN (7-18) mg/dl Creatinine (0.6-1.2) mg/dl Est Cr Clr Drug Dosing Est GFR ( Amer) Est GFR (Non-Af Amer) BUN/Creatinine Ratio (10-20) Glucose (70-99) mg/dl Lactate (0.4-2.0) mmol/L Calcium (8.5-10.1) mg/dl Magnesium 1.8 (1.8-2.4) mg/dl Total Bilirubin (0.2-1) mg/dl AST 10 L (15-37) U/L ALT (12-78) U/L Alkaline Phosphatase (45-117) U/L Total Protein (6.4-8.2) gm/dl Albumin (3.4-5.0) gm/dl Globulin (2.5-4.0) gm/dl Albumin/Globulin Ratio (0.9-2) Urine Color Urine Appearance (Clear) Urine pH (4.5-7.5) Ur Specific Keenes (1.000-1.030) Urine Protein (Negative) Urine Glucose (UA) (Negative) Urine Ketones (Negative) Urine Blood (Negative) Urine Nitrite (Negative) Urine Bilirubin (Negative) Urine Urobilinogen (Negative) Ur Leukocyte Esterase (Negative) Urine WBC (Auto) (0-5) /hpf Urine RBC (Auto) (0-4) /hpf U Hyaline Cast (Auto) (0-5) /lpf U Epithel Cells (Auto) (0-5) /lpf Urine Bacteria (Auto) (Negative) Ur Renal Epithelial Cell (0-5) /lpf Granular Casts (0) /lpf Urine Yeast Influenza Type A Ag (Neg) Influenza Type B Ag (Neg) Imaging Data Attestation: I personally reviewed and interpreted this imaging study as follows : Radiologist's Impression: XR chest 1V portable CLINICAL HISTORY: Sepsis COMPARISON STUDY: No previous studies for comparison. FINDINGS: Left subclavian [id number]-Kozq is in place. There is no pneumothorax or pleural effusion. There is mild opacity within the medial right lung base. Left lung is clear. No evidence for pulmonary edema. Cardiac size is at the upper limits of normal. IMPRESSION: Mild opacity within the medial right lung base which may reflect pneumonia or atelectasis. Radiographic follow-up is recommended to ensure resolution. Electronically signed by: Khris Stovall M.D. 12/02/2018 11:56 AM Blood Pressure Blood Pressure Findings: Low blood pressure Blood Pressure Disposition: further management by hospitalist LAUREN Curtis The patient presents with a fever. She is quite neutropenic. Her total ANC is 0.01. She does have a low hemoglobin and platelet count. The hemoglobin value today is lower than her baseline. No significant electrolyte abnormality, kidney failure or hepatitis. Lactic acid level is not elevated making severe sepsis less likely. Urinalysis does not show obvious infection. Influenza testing was negative. Chest film shows some atelectasis, no obvious pneumonia. Blood cultures are pending. The patient did seem dehydrated clinically. She was somewhat hypotensive. The patient received IV saline, 2 L. She received oral ibuprofen for her fever. She was given IV cefepime as antibiotic coverage. I did speak with oncology, I do think a hospital stay is warranted. The patient has a fever without a known source. She is somewhat hypotensive and dehydrated. She is quite neutropenic. Hospitalization is warranted. I spoke to the patient and caseworker protective services. The on-call hospitalist was consulted. Impression & Plan Neutropenic fever, Hypotension, Non Hodgkin's lymphoma Discharge Plan Visit Data Chief Complaint: Fever Stated Complaint: FEVER WBC 1.5 ED Provider: Arsenio Rawls Discharge Problem: Neutropenic fever, Hypotension, Non Hodgkin's lymphoma Patient Disposition: Being Evaluated by Hospitalist Forms Stand Alone Forms: My [facility] Prescriptions Prescriptions: No Action multivitamin Tablet 1 tab PO QAM RF: 0 levonorgestrel [Mirena] 20 mcg/24 hr (5 years) Intrauterine Device 1 applic Intrauterine UD RF: 0 ferrous sulfate [iron] 325 mg (65 mg iron) Tablet 325 mg PO QAM RF: 0 zinc 50 mg Tablet 50 mg PO QAM RF: 0 calcium carbonate-vitamin D3 [Calcium 500 With D] 500 mg(1,250mg) -400 unit Tablet 1 tab PO QAM RF: 0 omega 8-pxa-thg-fish oil [Fish Oil] 1,000 mg (120 mg-180 mg) Capsule 1 cap PO UD PRN (Reason: Other) RF: 0 biotin 5,000 mcg Tablet,Disintegrating 10,000 mcg PO QAM RF: 0 acetaminophen [Tylenol Extra Strength] 500 mg Tablet 1,000 mg PO Q6H PRN (Reason: Fever) RF: 0 ibuprofen 400 mg Tablet 400 mg PO QID PRN (Reason: Fever) RF: 0 Referrals Referrals: Lucian Mcmahan MD [Primary Care Provider] - The scribe's documentation has been prepared under my direction and personally reviewed by me in its entirety. I confirm that the note above accurately reflects all work, treatment, procedures, and medical decision making performed by me.
[2018-12-02] MEDS ORDERED: ACETAMINOPHEN 325 MG TAB PO PRN (18:04)
[2018-12-02] MEDS ORDERED: ONDANSETRON INJ 2 MG/ML 2 ML VIAL IV PRN (18:04)
[2018-12-02] MEDS ORDERED: CEFEPIME CONSULT ACTIVE PRN ×2 (18:42)
[2018-12-02] MEDS ORDERED: VANCOMYCIN CONSULT ACTIVE PRN (18:43)
[2018-12-02] MEDS ORDERED: VANCOMYCIN HCL 1,500 MG in SODIUM CHLORIDE 0.9% 500 ML IV SCH (19:00)
[2018-12-02] MEDS: SODIUM CHLORIDE 0.9% 1000ML 1,000 ML IV SCH (19:13)
[2018-12-02] MEDS: ENOXAPARIN INJ 40 MG/0.4 ML SYR SQ SCH (19:34)
--- NOTE | 2018-12-02 20:53 | Pharmacy Report ---
Pharmacy Abx Initial Consult - Date of Service December 02, 2018 - Pharmacy Dosing Scope Date of Consult: 12/02/18 Consultation requested by: Belle Davis PA-c Pharmacy is consulted to initiate Vancomycin IV dosing therapy, order appropriate labs and adjust drug dose/frequency. - Subjective The patient is a 53 year old F admitted on 12/02/18 15:28. - Objective Height: 5 ft 10 in Weight: 65 kg Vital Signs (Past 12hrs): Vital Signs Temp Pulse Pulse Resp BP BP BP 12/02/18 19:35 36.7 C 71 20 90/52 L 12/02/18 17:20 81 21 12/02/18 17:10 78 30 H 12/02/18 17:01 73 21 12/02/18 17:00 76 24 83/43 L 12/02/18 16:50 74 17 12/02/18 16:40 73 18 12/02/18 16:35 74 16 89/48 L 12/02/18 16:33 73 15 89/48 L 12/02/18 16:32 73 17 72/53 L 12/02/18 16:31 73 14 59/37 L 12/02/18 16:30 70 9 L 12/02/18 16:20 72 13 12/02/18 16:10 74 24 12/02/18 16:00 73 27 H 91/48 L 12/02/18 15:50 76 16 12/02/18 15:40 75 10 L 12/02/18 15:32 76 13 12/02/18 15:31 79 13 96/50 L 12/02/18 15:30 76 15 12/02/18 15:20 75 15 12/02/18 15:14 75 15 12/02/18 15:00 77 19 89/51 L 12/02/18 14:50 71 13 12/02/18 14:40 37.0 C 74 20 12/02/18 14:30 74 20 86/43 L 12/02/18 14:20 78 22 12/02/18 14:10 78 14 12/02/18 14:02 77 23 12/02/18 14:01 78 25 H 91/50 L 12/02/18 14:00 77 24 12/02/18 13:50 79 22 12/02/18 13:40 77 18 12/02/18 13:31 77 25 H 12/02/18 13:30 75 20 94/54 L 12/02/18 13:20 37.1 C 76 23 12/02/18 13:10 78 22 12/02/18 13:03 76 15 12/02/18 13:02 79 19 88/50 L 12/02/18 13:01 78 10 L 79/56 L 12/02/18 13:00 79 16 12/02/18 12:50 80 16 12/02/18 12:40 84 26 H 12/02/18 12:31 85 23 103/47 L 12/02/18 12:30 85 22 12/02/18 12:27 90 17 93/54 L 12/02/18 12:21 12/02/18 12:11 113/52 L 12/02/18 12:10 12/02/18 12:09 113/52 L 12/02/18 12:00 12/02/18 11:50 92 H 20 12/02/18 11:45 12/02/18 11:40 95 H 22 12/02/18 11:30 93 H 24 12/02/18 11:28 12/02/18 11:26 101 H 20 12/02/18 11:23 96 H 26 H 113/52 L 12/02/18 11:12 38.3 C H 16 94/52 L Pulse Ox 12/02/18 19:35 98 12/02/18 17:20 100 12/02/18 17:10 99 12/02/18 17:01 98 12/02/18 17:00 99 12/02/18 16:50 100 12/02/18 16:40 97 12/02/18 16:35 97 12/02/18 16:33 98 12/02/18 16:32 98 12/02/18 16:31 100 12/02/18 16:30 100 12/02/18 16:20 100 12/02/18 16:10 100 12/02/18 16:00 100 12/02/18 15:50 100 12/02/18 15:40 98 12/02/18 15:32 100 12/02/18 15:31 100 12/02/18 15:30 100 12/02/18 15:20 100 12/02/18 15:14 12/02/18 15:00 100 12/02/18 14:50 98 12/02/18 14:40 98 12/02/18 14:30 98 12/02/18 14:20 98 12/02/18 14:10 98 12/02/18 14:02 98 12/02/18 14:01 97 12/02/18 14:00 99 12/02/18 13:50 100 12/02/18 13:40 100 12/02/18 13:31 100 12/02/18 13:30 100 12/02/18 13:20 100 12/02/18 13:10 100 12/02/18 13:03 100 12/02/18 13:02 100 12/02/18 13:01 100 12/02/18 13:00 100 12/02/18 12:50 100 12/02/18 12:40 12/02/18 12:31 99 12/02/18 12:30 12/02/18 12:27 100 12/02/18 12:21 99 12/02/18 12:11 99 12/02/18 12:10 100 12/02/18 12:09 100 12/02/18 12:00 100 12/02/18 11:50 99 12/02/18 11:45 98 12/02/18 11:40 99 12/02/18 11:30 97 12/02/18 11:28 99 12/02/18 11:26 100 12/02/18 11:23 100 12/02/18 11:12 99 Lab Results (24hrs): Laboratory Tests (24 Hours) 12/02/18 12/02/18 12:20 12:20 WBC 1.45 L Creatinine 1.10 Est Cr Clr Drug Dosing Not Reportable Micro Results: 12/02/18 12:40 Blood Culture - Pending Blood 12/02/18 12:20 Blood Culture - Pending Blood 12/02/18 11:25 Urine Culture - Pending Urine,Clean Catch - Risk Factors for Resistance * Immunocompromised (chronic steroid therapy, chemotherapy, immunomodulators) - Assessment & Plan Assessment * 53 year old F with Lymphoma and recent bone marrow biopsy. * Ordered Vancomycin + Cefepime for febrile neutropenia. Plan Vancomycin IV * Estimated PK Parameters: Vd 0.7 L/kg, Jose 0.055 hr-1, t1/2 12.6 hr * Loading dose: 1500 mg (23 mg/kg) given at 1930 today. * Maintenance dose: 1000 mg IV (15 mg/kg) every 16 hours * Goal trough level for Neutropenic Fever: 15 to 20 mcg/mL * Trough Vanco level ordered for 12/04 before dose at 1600 Pharmacy will continue to follow and will adjust dose/frequency as necessary. Thank you.
[2018-12-02] MEDS: CEFEPIME 2,000 MG in SYRINGE 7.5 ML IV SCH (21:01)
[2018-12-02] MEDS ORDERED: HYDROCORTISONE HC 2.5% CRM 30GM TUBE EXT PRN (22:10)
[2018-12-03] MEDS: SODIUM CHLORIDE 0.9% 1000ML 1,000 ML IV SCH ×2 (02:27→10:24)
[2018-12-03] MEDS: CEFEPIME 2,000 MG in SYRINGE 7.5 ML IV SCH ×3 (05:09→21:40)
[2018-12-03 07:18] LABS: Hematocrit (blood only) 27.9 % (37-47); Hemoglobin 9.5 g/dL (12.0-16.0); Mean Corpuscular Hgb Conc 34.1 g/dL (32-36); Mean Corpuscular Volume 85.6 fL (80-100); Mean Platelet Volume 10.5 fL (7.4-10.4); Platelet Count 114 K/uL (130-400); RDW Coefficient of Variation 13.2 % (11.5-14.5); RDW Standard Deviation 41.8 fL (36.4-46.3); Red Blood Count 3.26 M/uL (4.2-5.4); White Blood Count 1.88 K/uL (4.8-10.8)
[2018-12-03 07:32] LABS: BUN Creatinine Ratio 23.5 (10-20); Calcium 7.6 mg/dl (8.5-10.1); Creatinine Clr Calc Pharmacy 109.5 ml/min; Est GFR (African American) 118.3; Est GFR (Non-African American) 102.1; Potassium 3.5 mmol/L (3.5-5.1)
[2018-12-03 08:00] LABS: Basophils # (auto) 0.01 K/uL (0-0.2); Basophils % (auto) 0.5 %; Dohle Bodies 3+; Echinocytes 3+; Eosinophils # (auto) 0.32 K/uL (0-0.5); Immature Granulocytes # (auto) 0.16 K/uL (0.00-0.02); Immature Granulocytes % (auto) 8.5 %; Lymphocytes # (auto) 0.46 K/uL (1.2-3.4); Lymphocytes % (auto) 24.5 %; Monocytes # (auto) 0.78 K/uL (0.11-0.59); Monocytes % (auto) 41.5 %; Neutrophils # (auto) 0.15 K/uL (1.4-6.5); Ovalocytes 2+; Toxic Granulation 3+
[2018-12-03] MEDS ORDERED: VANCOMYCIN HCL 1,000 MG in SODIUM CHLORIDE 0.9% 250 ML IV SCH (08:00)
[2018-12-03] MEDS: MULTIVITAMIN TAB PO SCH (09:07)
[2018-12-03] MEDS: FERROUS SULFATE 325 MG TAB PO SCH (09:07)
--- NOTE | 2018-12-03 09:57 | Hospitalist Progress Note ---
Date of Service December 03, 2018 Assessment & Plan (1) Neutropenic fever: (2) Pancytopenia: (3) Follicular lymphoma: per admitting service notes: Hx follicular lymphoma. Follows with Dr Shay. Last chemo (obinutuzumab) was 08/2018. 10/2018 became neutropenic Had bone marrow biopsy at [place] by Dr Gamez on 11/29/18 Presented to ER with c/o fever/chills, rigors, decreased appetite x 3 days, and 2 episodes vomiting In ER T: 38.3, P: 96-101, R: 16-26, BP: 94/52. WBC: 1.4 (was 1.5 on 11/28/18). RBC: 3.3 (was 4.1), Hgb: 9.9 (was 12.3), Plt:105 (197), Neut: 0.01. Negative influenza swab. UA: appears contaminated. CXR: Mild opacity within the medial right lung base which may reflect pneumonia or atelectasis. Radiographic follow-up is recommended to ensure resolution. - afebrile since last night - anc 150 - blood culture: gram negative bacilli 1/2 bottles urine culture: negative - continue empiric Vanco + Cefepime IV NSS - will consult ID (4) Hyponatremia: likely hypovolemic improved continue IV NSS (5) Rash: no associated pruritis, pain from lymphoma? will continue to monitor for now (6) Abnormal CXR: CXR: right middle lobe PNA vs infiltrate check CT chest without contrast (7) Hemorrhoids: anusol suppository ordered DVT prophylaxis Lovenox Disposition pending patient examined with TRINITY Polanco at bedside case discussed with patient at length and in detail, including plan of care she is agreeable and comfortable with plan of care all questions answered Subjective ff up for febrile neutropenia seen resting in bed, comfortable states she feels improved today compared to yesterday afebrile since last night denie headache, dizziness, sore throat, cough, sputum feels "bloated" but no abdominal pain, nausea (+) regular BMs reports having hemorrhoids- new, painful, no bleeding no dyuria reports rash in the groin/suprapubic area- no pruritus, no pain, has developed in the past no other symptoms Physical Exam 2 Vital Signs (Past 24 Hours): Last Vital Signs Temp 36.9 C 12/03/18 07:30 Pulse 76 12/03/18 08:00 Resp 20 12/03/18 07:30 BP 99/59 L 12/03/18 07:30 Pulse Ox 97 12/03/18 07:30 Physical Exam: General- oriented x 3, not in distress, speaks in sentences with no effort or accessory muscle use Head- atraumatic Eyes- PERRL, EOMI, anicteric ENT- oropharynx clear Neck- supple, no JVD, no adenopathy, no thyromegaly; carotids +2/2, no bruits appreciated Lungs- clear to auscultation bilaterally, no rales/wheezes Heart- normal rate, regular rhythm; no murmur, no gallop, no rub appreciated Abdomen- normal bowel sounds, nondistended, soft, nontender, no masses or hepatosplenomegaly (+) multiple raised erythematous lesions in the suprapubic r/l, inquinal regions , no tenderness/warmth (+) external hemorrhoids- no bleeding Extremities- no pretibial edema, no calf tenderness; peripheral pulses intact Neuro- alert, oriented x 3; CN 2-12 grossly intact; motor 5/5 bilaterally; sensation 100% on all extremities; no other gross focal neurologic deficits Skin- warm & dry Results & Data Laboratory Results Laboratory Results - last 24 hr 12/02/18 12/02/18 12/02/18 11:25 11:49 12:20 WBC 1.45 L RBC 3.36 L Hgb 9.9 L Hct 29.1 L MCV 86.6 MCH 29.5 MCHC 34.0 RDW Std Deviation 41.3 RDW Coeff of Neil 12.9 Plt Count 105 L MPV 11.2 H Immature Gran % (Auto) Neut % (Auto) Lymph % (Auto) [place] % (Auto) Eos % (Auto) Baso % (Auto) Immature Gran # (Auto) Neut # (Auto) Lymph # (Auto) [place] # (Auto) Eos # (Auto) Baso # (Auto) Neutrophils % (Manual) 0.9 Lymphocytes % (Manual) 34.2 Monocytes % (Manual) 60.5 Eosinophils % (Manual) 2.6 Basophils % (Manual) 1.8 Neutrophils # (Manual) 0.01 L Total Absolute Neuts 0.01 L* Lymphocytes # (Manual) 0.50 L Total Abs Lymphocytes 0.50 L Monocytes # (Manual) 0.88 H Eosinophils # (Manual) 0.04 Basophils # (Manual) 0.03 Toxic Granulation Dohle Bodies Ovalocytes Echinocytes PT INR APTT PTT Ratio Sodium Potassium Chloride Carbon Dioxide Anion Gap BUN Creatinine Est Cr Clr Drug Dosing Est GFR ( Amer) Est GFR (Non-Af Amer) BUN/Creatinine Ratio Glucose Lactate Calcium Magnesium Total Bilirubin AST ALT Alkaline Phosphatase Total Protein Albumin Globulin Albumin/Globulin Ratio Urine Color Xin Urine Appearance Cloudy H Urine pH 5.0 Ur Specific Taylor 1.019 Urine Protein 2+ H Urine Glucose (UA) Negative Urine Ketones Negative Urine Blood 1+ H Urine Nitrite Negative Urine Bilirubin Negative Urine Urobilinogen Negative Ur Leukocyte Esterase Negative Urine WBC (Auto) 1-5 Urine RBC (Auto) 0-4 U Hyaline Cast (Auto) 10-30 H U Epithel Cells (Auto) >30 H Urine Bacteria (Auto) Negative Ur Renal Epithelial Cell 0-5 Granular Casts 1-5 H Urine Yeast Not Reportable Nasal Screen MRSA (PCR) Influenza Type A Ag Neg for Influ A Influenza Type B Ag Neg for Influ B 12/02/18 12/02/18 12/02/18 12:20 12:20 12:20 WBC RBC Hgb Hct MCV MCH MCHC RDW Std Deviation RDW Coeff of Neil Plt Count MPV Immature Gran % (Auto) Neut % (Auto) Lymph % (Auto) [place] % (Auto) Eos % (Auto) Baso % (Auto) Immature Gran # (Auto) Neut # (Auto) Lymph # (Auto) [place] # (Auto) Eos # (Auto) Baso # (Auto) Neutrophils % (Manual) Lymphocytes % (Manual) Monocytes % (Manual) Eosinophils % (Manual) Basophils % (Manual) Neutrophils # (Manual) Total Absolute Neuts Lymphocytes # (Manual) Total Abs Lymphocytes Monocytes # (Manual) Eosinophils # (Manual) Basophils # (Manual) Toxic Granulation Dohle Bodies Ovalocytes Echinocytes PT 12.3 H INR 1.2 H APTT 36.8 H PTT Ratio 1.4 Sodium 131 L Potassium Chloride 98 Carbon Dioxide 26 Anion Gap 7.0 BUN 18 Creatinine 1.10 Est Cr Clr Drug Dosing Not Reportable Est GFR ( Amer) 66.8 Est GFR (Non-Af Amer) 57.7 BUN/Creatinine Ratio 16.3 Glucose 103 H Lactate 2.0 Calcium 8.3 L Magnesium Total Bilirubin 0.8 AST ALT 18 Alkaline Phosphatase 43 L Total Protein 6.1 L Albumin 2.8 L Globulin 3.3 Albumin/Globulin Ratio 0.9 Urine Color Urine Appearance Urine pH Ur Specific Taylor Urine Protein Urine Glucose (UA) Urine Ketones Urine Blood Urine Nitrite Urine Bilirubin Urine Urobilinogen Ur Leukocyte Esterase Urine WBC (Auto) Urine RBC (Auto) U Hyaline Cast (Auto) U Epithel Cells (Auto) Urine Bacteria (Auto) Ur Renal Epithelial Cell Granular Casts Urine Yeast Nasal Screen MRSA (PCR) Influenza Type A Ag Influenza Type B Ag 12/02/18 12/02/18 12/03/18 13:07 19:20 06:31 WBC 1.88 L RBC 3.26 L Hgb 9.5 L Hct 27.9 L MCV 85.6 MCH 29.1 MCHC 34.1 RDW Std Deviation 41.8 RDW Coeff of Niel 13.2 Plt Count 114 L MPV 10.5 H Immature Gran % (Auto) 8.5 Neut % (Auto) 8.0 Lymph % (Auto) 24.5 [place] % (Auto) 41.5 Eos % (Auto) 17.0 Baso % (Auto) 0.5 Immature Gran # (Auto) 0.16 H Neut # (Auto) 0.15 L* Lymph # (Auto) 0.46 L [place] # (Auto) 0.78 H Eos # (Auto) 0.32 Baso # (Auto) 0.01 Neutrophils % (Manual) Lymphocytes % (Manual) Monocytes % (Manual) Eosinophils % (Manual) Basophils % (Manual) Neutrophils # (Manual) Total Absolute Neuts Lymphocytes # (Manual) Total Abs Lymphocytes Monocytes # (Manual) Eosinophils # (Manual) Basophils # (Manual) Toxic Granulation 3+ Dohle Bodies 3+ Ovalocytes 2+ Echinocytes 3+ PT INR APTT PTT Ratio Sodium Potassium 3.7 Chloride Carbon Dioxide Anion Gap BUN Creatinine Est Cr Clr Drug Dosing Est GFR ( Amer) Est GFR (Non-Af Amer) BUN/Creatinine Ratio Glucose Lactate Calcium Magnesium 1.8 Total Bilirubin AST 10 L ALT Alkaline Phosphatase Total Protein Albumin Globulin Albumin/Globulin Ratio Urine Color Urine Appearance Urine pH Ur Specific Taylor Urine Protein Urine Glucose (UA) Urine Ketones Urine Blood Urine Nitrite Urine Bilirubin Urine Urobilinogen Ur Leukocyte Esterase Urine WBC (Auto) Urine RBC (Auto) U Hyaline Cast (Auto) U Epithel Cells (Auto) Urine Bacteria (Auto) Ur Renal Epithelial Cell Granular Casts Urine Yeast Nasal Screen MRSA (PCR) Negative Influenza Type A Ag Influenza Type B Ag 12/03/18 06:31 WBC RBC Hgb Hct MCV MCH MCHC RDW Std Deviation RDW Coeff of Neil Plt Count MPV Immature Gran % (Auto) Neut % (Auto) Lymph % (Auto) [place] % (Auto) Eos % (Auto) Baso % (Auto) Immature Gran # (Auto) Neut # (Auto) Lymph # (Auto) [place] # (Auto) Eos # (Auto) Baso # (Auto) Neutrophils % (Manual) Lymphocytes % (Manual) Monocytes % (Manual) Eosinophils % (Manual) Basophils % (Manual) Neutrophils # (Manual) Total Absolute Neuts Lymphocytes # (Manual) Total Abs Lymphocytes Monocytes # (Manual) Eosinophils # (Manual) Basophils # (Manual) Toxic Granulation Dohle Bodies Ovalocytes Echinocytes PT INR APTT PTT Ratio Sodium 137 Potassium 3.5 Chloride 109 H Carbon Dioxide 22 Anion Gap 6.0 BUN 15 Creatinine 0.65 D Est Cr Clr Drug Dosing 109.5 Est GFR ( Amer) 118.3 Est GFR (Non-Af Amer) 102.1 BUN/Creatinine Ratio 23.5 H Glucose 92 Lactate Calcium 7.6 L Magnesium Total Bilirubin AST ALT Alkaline Phosphatase Total Protein Albumin Globulin Albumin/Globulin Ratio Urine Color Urine Appearance Urine pH Ur Specific Taylor Urine Protein Urine Glucose (UA) Urine Ketones Urine Blood Urine Nitrite Urine Bilirubin Urine Urobilinogen Ur Leukocyte Esterase Urine WBC (Auto) Urine RBC (Auto) U Hyaline Cast (Auto) U Epithel Cells (Auto) Urine Bacteria (Auto) Ur Renal Epithelial Cell Granular Casts Urine Yeast Nasal Screen MRSA (PCR) Influenza Type A Ag Influenza Type B Ag
[2018-12-03] MEDS: ANUSOL SUPP 1 EA PR SCH (10:24)
--- NOTE | 2018-12-03 12:08 | CT Scan Report ---
CT OF THE CHEST WITHOUT IV CONTRAST CLINICAL HISTORY: fever,hx of lymphoma, r/o r middle lobe pneumonia COMPARISON STUDY: Chest radiograph December 02, 2018. CT DOSE: 347.22 mGy.cm TECHNIQUE: Axial images of the chest were obtained without IV contrast. Images were reviewed in the axial, sagittal, and coronal planes. IV contrast was not administered for this examination. Automat ed exposure control was utilized for the study. A dose lowering technique was utilized adhering to t he principles of ALARA. FINDINGS: A left subclavian [id number] is in place. Note is made of a 1.7 cm left lobe thyroid no dule. Several moderately enlarged bilateral axillary lymph nodes are noted, including a 2.9 x 1.6 cm left axillary lymph node. No enlarged hilar or mediastinal lymph nodes are present. The size of the h eart is normal. There is a small pericardial effusion. There are trace bilateral pleural effusions wi th no pneumothorax. There is evidence for anasarca. Central airways are patent. There is no consolida tion to suggest pneumonia. Minimal right lower lobe opacity reflects atelectasis. No suspicious osseo us lesion is noted. A few water attenuation small hepatic lesions are suboptimally assessed on this u nenhanced exam but favor cysts. There are bilateral breast implants. IMPRESSION: 1. No consolidation to suggest pneumonia. 2. Small pericardial effusion. Trace bilateral pleural effusions. Mild anasarca. 3. A few moderately enlarged bilateral axillary lymph nodes which are nonspecific but would be consis tent with the provided history of lymphoma. Electronically signed by: Khris Stovall M.D. 12/03/2018 12:06 PM
--- NOTE | 2018-12-03 12:09 | XRay Report ---
KUB CLINICAL HISTORY: abdominal bloating COMPARISON STUDY: None. FINDINGS: Intrauterine device is noted. Bowel gas pattern is within normal limits. No urinary calculi are identified although the renal shadows are partially obscured by stool. IMPRESSION: No evidence for a bowel obstruction. Electronically signed by: Khris Stovall M.D. 12/03/2018 12:07 PM
--- NOTE | 2018-12-03 12:58 | Oncology Consultation ---
Date of Consultation December 03, 2018 Imp: 53 year old female with follicular lymphoma, prolonged severe neutropenia since 10/2018, despite obinutuzumab being held She had bone marrow aspirate and biopsy at [facility] on 11/29/18 I called and spoke to Dr Verduzco covering since Dr Gamez was paged but was not available Dr Verduzco said that bone marrow showed normocellular marrow with myeloid maturation arrest of unclear etiology, cytogenetics and molecular studies are not available at this time She is admitted with neutropenic fever and positive blood culture with gram negative bacilli. She is on cefepime and vancomycin. She is feeling improved today ANC improved from 0.01 to 0.15 today will hold off on neupogen at this time and follow CBC - Dr Verduzco agreed since the molecular studies and cytogenetics not available and there is myeloid maturation arrest of unclear etiology recommend continue IV antibiotics monitor daily cbc w/ diff. no indication for transfusion at this time. transfuse irradiated PRBC if hemoglobin drops<7g/dL check repeat blood cultures and recommend consult with ID Recommend check CT scan of abdomen and pelvis with IV and oral contrast - evaluate for source of her gram negative bacteremia recommend GI consult as well for her pain in anal area rash on pubic area, also with inguinal adenopathy: recommend ID consult and consult dermatology for biopsy if rash not resolving follow up in office upon discharge with Dr Shay discussed recommendations with Dr Alarcon thank you for consult. reason for consult: history of follicular lymphoma, neutropenic fever History of Present Illness Attending Physician: Brad Alarcon MD HPI: 53 year old female with history of follicular lymphoma, follows with Dr Shay. She was treated wit obinutuzumab, last treatment was in 08/2018. Treatment has been held due to prolonged neutropenia. She was evaluated at [place] and had a bone marrow aspirate and biopsy on 11/29/18. She is admitted with fever chills, decreased appetite, dehydration and generalized weakness. She states that symptoms started about 2 days before she came to ER. She denies any known sick contacts She denies any diarrhea or constipation. However she states that she has developed painful hemorrhoids. She states that had abdominal discomfort and had episode of vomiting bilious emesis at home. She states that she had mild headaches with the fever as well. She denies any neck pain or stiffness. Denies any urinary complaints. She states that mouth was dry and had decreased appetite for few days. Today she is drinking more fluids. She has lymphadenopathy in bilateral groin. She states that she notice that when she got the fever that the swollen glands in her groin appeared smaller in size but that she developed a rash in the pubic area an around the inguinal nodes. She denies any pruritus She denies any pain or swelling at portacath site Denies any pain at the bone marrow site or any bleeding She feels better today since receivin IVFs and antibiotics She is on cefepime IV and vancomycin Blood culture 1 out of 2 bottles growing gram negative bacilli Allergies Allergy/AdvReac Type Severity Reaction Status Date / Time No Known Allergies Allergy Unverified 12/02/18 12:41 Home Medications Home Medications Medication Instructions Recorded Confirmed Type acetaminophen [Tylenol Extra 1,000 mg PO Q6H PRN 12/02/18 12/02/18 History Strength] biotin 10,000 mcg PO QAM 12/02/18 12/02/18 History calcium carbonate-vitamin D3 1 tab PO QAM 12/02/18 12/02/18 History [Calcium 500 With D] ferrous sulfate [iron] 325 mg PO QAM 12/02/18 12/02/18 History ibuprofen 400 mg PO QID PRN 12/02/18 12/02/18 History levonorgestrel [Mirena] 1 applic INTRAUTERINE UD 12/02/18 12/02/18 History multivitamin 1 tab PO QAM 12/02/18 12/02/18 History omega 9-wfl-rok-fish oil [Fish Oil] 1 cap PO UD PRN 12/02/18 12/02/18 History zinc 50 mg PO QAM 12/02/18 12/02/18 History Patient History Medical History Multinodular goiter (Chronic) Hyperthyroidism (Chronic) Follicular lymphoma (Chronic) Non Hodgkin's lymphoma Surgical History History of lymph node biopsy (Resolved) Dr Hummel - 01/2017 - Left inguinal mass, bx; dx follicular lymphoma, grade 2 History of bone marrow biopsy (Resolved) 11/29/18 - [place] - Dr Gamez History of partial thyroidectomy (Resolved) R lobectomy and isthmusectomy, Right and central lymph node dissection Family History Other Cancer Goiter Social History marital status: Current Living Situation: Spouse Other Information That Helps Us Care for You: No Feels Safe at Home: Yes Safety Concerns: Feels Safe At This Time Smoking Status: Never smoker Hx Alcohol Use: No Hx Substance Use: No Beliefs That Will Affect Care: None Preferred Language: Tristanian Communication Ability: Effective Machine 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 Required: No Review of Systems as stated per HPI otherwise negative Physical Exam 2 Vital Signs (Past 24 Hours): Last Vital Signs Temp 37.7 C H 12/03/18 12:00 Pulse 77 12/03/18 12:00 Resp 18 12/03/18 12:00 BP 99/52 L 12/03/18 12:00 Pulse Ox 98 12/03/18 12:00 Gen: awake and alert, well developed female NAD HEENT: anicteric no pallor dry buccal mucosa neck: supple, no palpable adenopathy Lungs: CTAB no wheezes or rales or rhonchi CV: S1 S2 RRR Abd: +BS soft NT/ND no guarding or rebound Ext: no edema LNs: bilateral inguinal lymphadenopathy with macropapular erythematous rash/ nodules on the pubic and groin areas neuro: alert and oriented x 3 grossly nonfocal psych: mood and affect appropriate Results & Data Laboratory Results blood culture:+gram negative bacilli urine culture: pin point growth reincubating 12/02/18 WBC 1.45 HGB 9.9 HCT 29.1 PLT 105 ANC 0.01 12/03/18 wbc 1.8 hemoglobin 9.5 hct 27.9 plt 114 ANC 0.15 Na 137 K3.5 CL 109 CO2 22 BUN 15 CREAT 0.65 AST 10 ALT 18 TP 6.1 ALB2.8 Diagnostic Findings CXR:Mild opacity within the medial right lung base which may reflect pneumonia or atelectasis CT CHEST: . No consolidation to suggest pneumonia. 2. Small pericardial effusion. Trace bilateral pleural effusions. Mild anasarca. 3. A few moderately enlarged bilateral axillary lymph nodes which are nonspecific but would be consistent with the provided history of lymphoma. KUB: No obstruction
[2018-12-03] MEDS ORDERED: LIDOCAINE HCL 5% OINT 30 GM TUBE EXT PRN (15:31)
[2018-12-03] MEDS ORDERED: IOVERSOL 100ml IV PRN (17:21)
[2018-12-03] MEDS: VANCOMYCIN HCL 1,000 MG in SODIUM CHLORIDE 0.9% 250 ML IV SCH (17:39)
--- NOTE | 2018-12-03 17:54 | CT Scan Report ---
ABDOMEN AND PELVIS CT WITH IV AND ORAL CONTRAST CT DOSE: 304.86 mGy.cm HISTORY: febrile neutropenia, abdominal bloating TECHNIQUE: Multiaxial CT images of the abdomen and pelvis were performed following the use of intrave nous and oral contrast. A dose lowering technique was utilized adhering to the principles of ALARA. COMPARISON STUDY: Chest CT 12/03/2018. FINDINGS: Small bilateral pleural effusions and a small pericardial effusion are again noted. Evidenc e for bilateral breast augmentation. No pneumoperitoneum. No pneumatosis. No suspicious lytic or rolan tic osseous lesions. Mild to moderate body wall edema. Small amount of ascites. A few scattered hypod ense lesions seen throughout the liver. The largest in the left hepatic lobe measures 1 cm. These fav or cysts. The spleen is enlarged measuring 15 cm in length. No splenic masses. The adrenal glands, pa ncreas, gallbladder, and kidneys are unremarkable. No hydronephrosis. Mild retroperitoneal lymphadeno savana. Left greater the right bilateral iliac lymphadenopathy. Bulky bilateral inguinal lymphadenopat hy. The dominant left inguinal lymph node is necrotic and measures 4.4 x 3.5 cm. Dominant left loan auditor al iliac lymph node measures 4.2 cm. Bladder is mildly thickened. This is likely due to underdistenti on. An intrauterine device is in good position. No bowel wall thickening or obstruction. Normal appen navin. IMPRESSION: 1. Mild retroperitoneal and common iliac lymphadenopathy with bulky external iliac and inguinal lymph adenopathy. There is also splenomegaly. These findings are consistent with the patient's history of l ymphoma. 2. Mild to moderate body wall edema with a small amount of ascites. 3. Small bilateral pleural effusions and a small pericardial effusion. 4. No bowel wall thickening or obstruction. 5. Normal appendix. Electronically signed by: Faustino Montaño M.D. 12/03/2018 5:53 PM
[2018-12-03] MEDS: ENOXAPARIN INJ 40 MG/0.4 ML SYR SQ SCH (18:49)
[2018-12-04] MEDS: SODIUM CHLORIDE 0.9% 1000ML 1,000 ML IV SCH ×2 (00:32→13:02)
[2018-12-04] MEDS ORDERED: VANCOMYCIN TROUGH ONE ×2 (03:30→15:30)
[2018-12-04] MEDS: VANCOMYCIN HCL 1,000 MG in SODIUM CHLORIDE 0.9% 250 ML IV SCH (04:45)
[2018-12-04] MEDS: CEFEPIME 2,000 MG in SYRINGE 7.5 ML IV SCH ×3 (04:45→20:47)
--- NOTE | 2018-12-04 07:55 | Infectious Disease Consult ---
Date of Consultation December 04, 2018 Assessment & Plan (1) Pseudomonas sepsis: continue cefepime, will stop vanco, repeat blood and urine cultures. port does not appear infected however pt expresses desire to have it removed as it has not been functioning. ?uti, aspymtomatic but cutlure reincubating, will repeat. 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 She had a tmax of 38.3 in ER. Blood and urine cultures obtained. UA with > 30 ep cells, culture reincubating. Blood cultures 1/2 sets growing probable pseudomonas species. She was started on cefepime and vanco, tolerating well. afebrile overnight. Has been neutropenic for > 1 month, last chemo for lymphoma was in 08/2018. had some vomiting at home, now none, eating well. ct chest abd and pelvis, no clear source for infection. no gu symptoms at home. has mild bloating but denies abd pain, no diarrhea. no cp, sob, cough, no cooley, neck pain, no muscle/joint pain. Has port left chest wall, placed in February, not functioning, has not been used for several months, no pain. no redness. tolerating abx. asking for repeat UA as she feels initial collection was dirty. She denies recent travel or sick contacts. 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 no am labs today. Allergies Allergy/AdvReac Type Severity Reaction Status Date / Time No Known Allergies Allergy Unverified 12/02/18 12:41 Home Medications Home Medications Medication Instructions Recorded Confirmed Type acetaminophen [Tylenol Extra 1,000 mg PO Q6H PRN 12/02/18 12/02/18 History Strength] biotin 10,000 mcg PO QAM 12/02/18 12/02/18 History calcium carbonate-vitamin D3 1 tab PO QAM 12/02/18 12/02/18 History [Calcium 500 With D] ferrous sulfate [iron] 325 mg PO QAM 12/02/18 12/02/18 History ibuprofen 400 mg PO QID PRN 12/02/18 12/02/18 History levonorgestrel [Mirena] 1 applic INTRAUTERINE UD 12/02/18 12/02/18 History multivitamin 1 tab PO QAM 12/02/18 12/02/18 History omega [id number]-fish oil [Fish Oil] 1 cap PO UD PRN 12/02/18 12/02/18 History zinc 50 mg PO QAM 12/02/18 12/02/18 History Patient History Medical History Multinodular goiter (Chronic) Hyperthyroidism (Chronic) Follicular lymphoma (Chronic) Non Hodgkin's lymphoma Surgical History History of lymph node biopsy (Resolved) Dr Hummel - 01/2017 - Left inguinal mass, bx; dx follicular lymphoma, grade 2 History of bone marrow biopsy (Resolved) 11/29/18 - [place] - Dr Gamez History of partial thyroidectomy (Resolved) R lobectomy and isthmusectomy, Right and central lymph node dissection Family History Other Cancer Goiter Social History marital status: Current Living Situation: Spouse Other Information That Helps Us Care for You: No Feels Safe at Home: Yes Safety Concerns: Feels Safe At This Time Smoking Status: Never smoker Hx Alcohol Use: No Hx Substance Use: No Beliefs That Will Affect Care: None Communication Ability: Effective Review of Systems all remaining ros reviewed and are negative Physical Exam 2 Vital Signs (Past 24 Hours): Last Vital Signs Temp 36.7 C 12/04/18 04:00 Pulse 72 12/04/18 04:00 Resp 20 12/04/18 04:00 BP 114/62 12/04/18 04:00 Pulse Ox 99 12/04/18 04:00 Constitutional: WD/WN, vitals as above Eyes: PERRL, conjunctivae normal, anicteric sclerae ENMT: external ear and nose normal, oropharynx normal Neck: normal visual inspection Respiratory: normal respiratory effort, lungs clear to auscultation Cardiovascular: RRR, no murmur, no edema Gastrointestinal (Abdomen): normal bowel sounds, soft, nontender, no hepatosplenomegaly Musculoskeletal: no cyanosis or clubbing, extremities motor strength 5/5 Skin: no rashes, warm and dry port incision intact, non tender, no surrounding warmth, tenderness, no drainage or bleeding Psychiatric: A+Ox3, euthymic affect Results & Data Laboratory Results Microbiology 12/02/18 12:20 Blood Blood Culture - Preliminary Probable Pseudomonas species 12/02/18 12:40 Blood Blood Culture - Preliminary No growth to date. 12/02/18 11:25 Urine,Clean Catch Urine Culture - Preliminary Pin-point growth present, reincubating.
[2018-12-04] MEDS: ANUSOL SUPP 1 EA PR SCH (08:51)
[2018-12-04] MEDS: MULTIVITAMIN TAB PO SCH (08:51)
[2018-12-04] MEDS: FERROUS SULFATE 325 MG TAB PO SCH (08:51)
[2018-12-04 10:08] LABS: BUN Creatinine Ratio 11.1 (10-20); Calcium 8.4 mg/dl (8.5-10.1); Creatinine Clr Calc Pharmacy 92.4 ml/min; Est GFR (African American) 102.9; Est GFR (Non-African American) 88.8
[2018-12-04 10:30] LABS: Hematocrit (blood only) 32.7 % (37-47); Hemoglobin 11.2 g/dL (12.0-16.0); Mean Corpuscular Hgb Conc 34.3 g/dL (32-36); Mean Platelet Volume 10.8 fL (7.4-10.4); Platelet Count 189 K/uL (130-400); RDW Coefficient of Variation 13.5 % (11.5-14.5); RDW Standard Deviation 43.1 fL (36.4-46.3); Red Blood Count 3.76 M/uL (4.2-5.4); White Blood Count 2.18 K/uL (4.8-10.8)
[2018-12-04 10:31] LABS: Dohle Bodies 1+; Echinocytes 1+; Ovalocytes 1+; Toxic Granulation 3+
[2018-12-04 10:32] LABS: ALC (manual) 0.34 K/uL (1.2-3.4); Eosinophils # (manual) 0.58 K/uL (0-0.5); Lymphocytes # (manual) 0.34 K/uL (1.2-3.4); Lymphocytes % (manual) 15.5 %; Metamyelocytes # (manual) 0.04 K/uL (0-0); Metamyelocytes % (manual) 1.7 %; Monocytes # (manual) 0.39 K/uL (0.11-0.59); Monocytes % (manual) 18.1 %; Myelocytes # (manual) 0.06 K/uL (0-0); Myelocytes % (manual) 2.6 %; Neutrophils % (manual) 35.4 %
--- NOTE | 2018-12-04 12:39 | Hospitalist Progress Note ---
Date of Service December 04, 2018 Assessment & Plan (1) Neutropenic fever: (2) Pancytopenia: (3) Diarrhea: check C diff probiotics not recommended in light of neutropenia, discussed with GI monitor (4) Follicular lymphoma: per admitting service notes: Hx follicular lymphoma. Follows with Dr Shay. Last chemo (obinutuzumab) was 08/2018. 10/2018 became neutropenic Had bone marrow biopsy at [place] by Dr Gamez on 11/29/18 Presented to ER with c/o fever/chills, rigors, decreased appetite x 3 days, and 2 episodes vomiting In ER T: 38.3, P: 96-101, R: 16-26, BP: 94/52. WBC: 1.4 (was 1.5 on 11/28/18). RBC: 3.3 (was 4.1), Hgb: 9.9 (was 12.3), Plt:105 (197), Neut: 0.01. Negative influenza swab. UA: appears contaminated. CXR: Mild opacity within the medial right lung base which may reflect pneumonia or atelectasis. Radiographic follow-up is recommended to ensure resolution. - afebrile so far - anc up to 770 CBC improving overall - blood culture: possible Pseudomonas 1/2 bottles urine culture: negative - continue empiric Cefepime IV NSS - ID consulted urine and blood cultures improving (5) Hyponatremia: likely hypovolemic improved continue IV NSS (6) Rash: no associated pruritis, pain from lymphoma? wll consult Derm (7) Abnormal CXR: CXR: right middle lobe PNA vs infiltrate check CT chest without contrast: no pneumonia (8) Hemorrhoids: anusol suppository ordered improving GI consulted DVT prophylaxis Lovenox Disposition pending patient examined with TRINITY Polanco at bedside case discussed with patient at length and in detail, including plan of care she is agreeable and comfortable with plan of care all questions answered Subjective ff up for febrile neutropenia seen resting in bed, comfortable states she feels somewhat better (+) at least 2 episodes of loose BM, (+) bloating but no pain no urinary symptoms denies headache, cough, chills afebrile since last night no other symptoms Physical Exam 2 Vital Signs (Past 24 Hours): Last Vital Signs Temp 37.3 C 12/04/18 11:34 Pulse 71 12/04/18 11:34 Resp 18 12/04/18 11:34 BP 106/61 12/04/18 11:34 Pulse Ox 98 12/04/18 11:34 Physical Exam: General- oriented x 3, not in distress, speaks in sentences with no effort or accessory muscle use Eyes- anicteric Neck- no JVD Lungs- clear breath sounds bilaterally, no rales/wheezes Heart- normal rate, regular rhythm; no murmurs Abdomen-(+) maculopapular erythematous rash on the suprapubic area- no warmth/ tenderness; normal bowel sounds, nondistended, soft, nontender (+) inguinal lymphadenopathy Extremities- no pretibial edema, no calf tenderness Neuro- alert, oriented x 3; no gross focal neurologic deficits Skin- warm & dry Results & Data Laboratory Results Laboratory Results - last 24 hr 12/04/18 12/04/18 12/04/18 03:45 08:17 08:17 WBC 2.18 L RBC 3.76 L Hgb 11.2 L Hct 32.7 L MCV 87.0 MCH 29.8 MCHC 34.3 RDW Std Deviation 43.1 RDW Coeff of Neil 13.5 Plt Count 189 D MPV 10.8 H Neutrophils % (Manual) 35.4 Lymphocytes % (Manual) 15.5 Monocytes % (Manual) 18.1 Eosinophils % (Manual) 26.7 Metamyelocytes % (Man) 1.7 Myelocytes % (Man) 2.6 Neutrophils # (Manual) 0.77 L Total Absolute Neuts 0.77 L* Lymphocytes # (Manual) 0.34 L Total Abs Lymphocytes 0.34 L Monocytes # (Manual) 0.39 Eosinophils # (Manual) 0.58 H Metamyelocytes # (Man) 0.04 H Myelocytes # (Manual) 0.06 H Toxic Granulation 3+ Dohle Bodies 1+ Ovalocytes 1+ Echinocytes 1+ Sodium 140 Potassium 3.0 L Chloride 107 Carbon Dioxide 27 Anion Gap 7.0 BUN 9 D Creatinine 0.77 Est Cr Clr Drug Dosing 92.4 Est GFR ( Amer) 102.9 Est GFR (Non-Af Amer) 88.8 BUN/Creatinine Ratio 11.1 Glucose 93 Calcium 8.4 L Magnesium Urine Color Urine Appearance Urine pH Ur Specific Wilson Urine Protein Urine Glucose (UA) Urine Ketones Urine Blood Urine Nitrite Urine Bilirubin Urine Urobilinogen Ur Leukocyte Esterase Stl C. diff Tox B Gene Vancomycin Trough 9.3 12/04/18 12/04/18 12/04/18 08:17 11:30 16:29 WBC RBC Hgb Hct MCV MCH MCHC RDW Std Deviation RDW Coeff of Neil Plt Count MPV Neutrophils % (Manual) Lymphocytes % (Manual) Monocytes % (Manual) Eosinophils % (Manual) Metamyelocytes % (Man) Myelocytes % (Man) Neutrophils # (Manual) Total Absolute Neuts Lymphocytes # (Manual) Total Abs Lymphocytes Monocytes # (Manual) Eosinophils # (Manual) Metamyelocytes # (Man) Myelocytes # (Manual) Toxic Granulation Dohle Bodies Ovalocytes Echinocytes Sodium Potassium Chloride Carbon Dioxide Anion Gap BUN Creatinine Est Cr Clr Drug Dosing Est GFR ( Amer) Est GFR (Non-Af Amer) BUN/Creatinine Ratio Glucose Calcium Magnesium 1.8 Urine Color Yellow Urine Appearance Clear Urine pH 5.0 Ur Specific Wilson 1.011 Urine Protein Negative Urine Glucose (UA) Negative Urine Ketones Negative Urine Blood Negative Urine Nitrite Negative Urine Bilirubin Negative Urine Urobilinogen Negative Ur Leukocyte Esterase Negative Stl C. diff Tox B Gene Neg C.diff Toxin B Vancomycin Trough
[2018-12-04] MEDS ORDERED: POTASSIUM CHLORIDE 10 MEQ TABCR PO STA (12:47)
[2018-12-04 16:45] LABS: Appearance Urine Clear (Clear); Bilirubin Urine Negative (Negative); Color Urine Yellow; Glucose Urine UA Negative (Negative); Ketones Urine Negative (Negative); Leukocyte Esterase Urine Negative (Negative); Nitrite Urine Negative (Negative); Protein Urine Negative (Negative); Specific Gravity Urine 1.011 (1.000-1.030); Urobilinogen Urine Negative (Negative)
[2018-12-04] MEDS: ENOXAPARIN INJ 40 MG/0.4 ML SYR SQ SCH (18:31)
[2018-12-05] MEDS: SODIUM CHLORIDE 0.9% 1000ML 1,000 ML IV SCH ×2 (01:42→15:34)
[2018-12-05] MEDS: CEFEPIME 2,000 MG in SYRINGE 7.5 ML IV SCH ×5 (05:03→21:51)
[2018-12-05 06:55] LABS: Hematocrit (blood only) 31.6 % (37-47); Hemoglobin 10.7 g/dL (12.0-16.0); Mean Corpuscular Hgb Conc 33.9 g/dL (32-36); Mean Corpuscular Volume 86.8 fL (80-100); Platelet Count 189 K/uL (130-400); RDW Coefficient of Variation 13.5 % (11.5-14.5); Red Blood Count 3.64 M/uL (4.2-5.4); White Blood Count 3.37 K/uL (4.8-10.8)
[2018-12-05 07:31] LABS: Creatinine Clr Calc Pharmacy 114.8 ml/min; Est GFR (African American) 120.2; Est GFR (Non-African American) 103.7
[2018-12-05 07:34] LABS: Basophils # (auto) 0.05 K/uL (0-0.2); Basophils % (auto) 1.5 %; Eosinophils # (auto) 0.46 K/uL (0-0.5); Eosinophils % (auto) 13.6 %; Immature Granulocytes % (auto) 8.9 %; Lymphocytes # (auto) 0.46 K/uL (1.2-3.4); Lymphocytes % (auto) 13.6 %; Monocytes # (auto) 0.77 K/uL (0.11-0.59); Monocytes % (auto) 22.8 %; Neutrophils # (auto) 1.33 K/uL (1.4-6.5); Neutrophils % (auto) 39.6 %; Ovalocytes 1+; Toxic Granulation 3+
[2018-12-05] MEDS: MULTIVITAMIN TAB PO SCH (08:25)
[2018-12-05] MEDS: FERROUS SULFATE 325 MG TAB PO SCH (08:25)
--- NOTE | 2018-12-05 11:21 | Infectious Disease Progress Nt ---
Date of Service December 05, 2018 Assessment & Plan (1) Pseudomonas sepsis: continue cefepime for now, await final cultures, follow repeat cultures. ANC improving, afebrile. will need 14 days abx from first negative culture, final recs will depend on sensitivities. (2) Neutropenic fever: Subjective pt continues on cefepime, tolerating well. blood cultures growing pseudomonas, urine culture with > organisms, repeat UA yesterday negative. final sensitivities pending. ANC incrased to >1000 today. repeat blood cultures pending. Physical Exam 2 Vital Signs (Past 24 Hours): Last Vital Signs Temp 37 C 12/05/18 07:47 Pulse 76 12/05/18 08:32 Resp 18 12/05/18 07:47 BP 114/62 12/05/18 07:47 Pulse Ox 98 12/05/18 07:47 Results & Data Laboratory Results Microbiology 12/02/18 12:20 Blood Blood Culture - Preliminary Pseudomonas aeruginosa 12/02/18 11:25 Urine,Clean Catch Urine Culture - Final More than three types of organisms present, all moderate counts mixed probable skin rene. No further identifications or sensitivities to follow. 12/02/18 12:40 Blood Blood Culture - Preliminary No growth to date.
--- NOTE | 2018-12-05 18:49 | Hematology/Oncology Prog Note ---
"Date of Service December 05, 2018 Assessment & Plan (1) Pseudomonas sepsis: * ID has been consulted for 1/2 pseudomonas + blood cultures * Recommended to remain on cefepime * Patient is very concerned about getting C diff * She states she is going to now refuse all antibiotics as her ANC is highest it has been today since admitted and has been afebrile * Did not advise to refuse antibiotics, recommend ID to follow up so continued discussion can be had with this patient about importance to complete antibiotic regimen * Dr. Molina is aware patient is refusing antibiotics as well as hospitalist per patient * Repeat blood cultures are pending (2) Neutropenic fever: * ANC 1300 today, overall improved * Patient has been afebrile for 48 hrs * Monitor CBCD daily while hospitalized Subjective Patient reports feeling overall well. She denies cough, dyspnea. Has been afebrile > 48 hrs per her report. She denies nausea, abdominal pain, bowel issues. She denies any URI symptoms. States she feels very well aside from fatigue. Review of Systems See HPI Physical Exam 2 Vital Signs (Past 24 Hours): Last Vital Signs Temp 37.2 C 12/05/18 15:46 Pulse 71 12/05/18 15:46 Resp 16 12/05/18 15:46 BP 122/68 12/05/18 15:46 Pulse Ox 99 12/05/18 15:46 Constitutional: well developed and well nourished; no acute distress Respiratory: normal respiratory effort, lungs clear to auscultation Cardiovascular: RRR, no murmur, no edema Gastrointestinal (Abdomen): Inspection/Auscultation: + abdomen distended and normal bowel sounds Percussion/Palpation: abdomen nontender Skin: no rashes, warm and dry Neurologic: awake; not confused Results & Data Laboratory Results 12/05/18: WBC | 3.37 | L | 4.8-10.8 K/uL | RBC | 3.64 | L | 4.2-5.4 M/uL | Hgb | 10.7 | L | 12.0-16.0 g/dL | Hct | 31.6 | L | 37-47 % | MCV | 86.8 | | 80-100 fL | MCH | 29.4 | | 25-34 pg | MCHC | 33.9 | | 32-36 g/dL | RDW Std Dev | 43.0 | | 36.4-46.3 fL | RDW Coeff Neil | 13.5 | | 11.5-14.5 % | Plt | 189 | | 130-400 K/uL | MPV | 10.0 | | 7.4-10.4 fL | Neut % (auto) | 39.6 | | % | Lymp % (auto) | 13.6 | | % | [place] % (auto) | 22.8 | | % | Eos % (auto) | 13.6 | | % | Baso % (auto) | 1.5 | | % | Imm Gran % (aut | 8.9 | | % | | IG parameter reflects the combination of Metas, Myelos and | Promyelocytes. Neut # (auto) | 1.33 | L | 1.4-6.5 K/uL | Lymph # (auto) | 0.46 | L | 1.2-3.4 K/uL | [place] # (auto) | 0.77 | H | 0.11-0.59 K/uL | Eos # (auto) | 0.46 | | 0-0.5 K/uL | Baso # (auto) | 0.05 | | 0-0.2 K/uL | Imm Gran # (aut | 0.30 | H | 0.00-0.02 K/uL | Ovalocytes | 1+ | | | Toxic Gran | 3+ | |"
[2018-12-05] MEDS: ENOXAPARIN INJ 40 MG/0.4 ML SYR SQ SCH (18:57)
--- NOTE | 2018-12-06 03:58 | Hospitalist Progress Note ---
Date of Service December 06, 2018 delayed entry date of service 12/05/18 Assessment & Plan (1) Neutropenic fever: secondary to Pseudomonas bacteremia 1st blood culture: 1 out 2 sets positive for Pseudomonas, pansenstive 2nd blood culture: pending urine culture: negative ID and Hem/Onc consulted CBC and ANC improving continue IV Cefepime patient deciding whether or not to proceed with antibiotic course, feels Pseudomonas is just a contamination had a long discussion explaining need for continued antibiotic treatment due to clinical presentation highly suggestive of actual bacteremia with Pseudomonas (2) Pancytopenia: improving (3) Diarrhea: c diff negative resolved (4) Follicular lymphoma: per admitting service notes: Hx follicular lymphoma. Follows with Dr Shay. Last chemo (obinutuzumab) was 08/2018. 10/2018 became neutropenic Had bone marrow biopsy at [place] by Dr Gamez on 11/29/18 (5) Hyponatremia: likely hypovolemic resolved (6) Rash: gradually improving monitor Dermatology consulted but they are not able to do inpatient consults at this time consider outpatient Dermatology ff up (7) Abnormal CXR: CXR: right middle lobe PNA vs infiltrate CT chest without contrast: no pneumonia (8) Hemorrhoids: lidocaine gel ordered resolved DVT prophylaxis Lovenox Disposition pending case discussed at [facility] with patient, all questions answered she is agreeable and comfortable with plan of care Subjective ff up for febrile neutropenia seen resting in bed, comfortable not in distress remains afebrile states she continues to feel better no headache, chills, cough, abdominal pain rash on the abdomen without pain, pruritus hemorrhoid continues to improve no other symptoms Physical Exam 2 Vital Signs (Past 24 Hours): Last Vital Signs Temp 36.8 C 12/06/18 00:00 Pulse 73 12/06/18 00:00 Resp 20 12/06/18 00:00 BP 111/54 L 12/06/18 00:00 Pulse Ox 93 12/06/18 00:00 Physical Exam: General- oriented x 3, not in distress, speaks in sentences with no effort or accessory muscle use Eyes- anicteric Neck- no JVD Lungs- clear breath sounds bilaterally Heart- normal rate, regular rhythm; no murmurs Abdomen- normal bowel sounds, nondistended, soft, nontender rash: maculopapular - less raised, has 2-3 small pustules (+) inguinal lymphadenopathy Extremities- no pretibial edema, no calf tenderness Neuro- alert, oriented x 3; no gross focal neurologic deficits Skin- warm & dry Results & Data Laboratory Results all noted and reviewed
[2018-12-06] MEDS: CEFEPIME 2,000 MG in SYRINGE 7.5 ML IV SCH ×2 (04:10→12:32)
[2018-12-06 06:29] LABS: Hematocrit (blood only) 30.6 % (37-47); Hemoglobin 10.6 g/dL (12.0-16.0); Mean Corpuscular Hgb Conc 34.6 g/dL (32-36); Mean Platelet Volume 9.7 fL (7.4-10.4); Platelet Count 208 K/uL (130-400); RDW Coefficient of Variation 13.4 % (11.5-14.5); RDW Standard Deviation 42.1 fL (36.4-46.3); Red Blood Count 3.56 M/uL (4.2-5.4); White Blood Count 5.22 K/uL (4.8-10.8)
[2018-12-06 07:02] LABS: BUN Creatinine Ratio 10.8 (10-20); Calcium 8.1 mg/dl (8.5-10.1); Creatinine Clr Calc Pharmacy 96.2 ml/min; Est GFR (Non-African American) 93.1; Potassium 3.5 mmol/L (3.5-5.1)
[2018-12-06 07:18] LABS: Toxic Granulation 1+
[2018-12-06] MEDS: MULTIVITAMIN TAB PO SCH (07:43)
[2018-12-06] MEDS: FERROUS SULFATE 325 MG TAB PO SCH (07:43)
[2018-12-06 07:46] LABS: ALC (manual) 0.52 K/uL (1.2-3.4); Eosinophils # (manual) 0.47 K/uL (0-0.5); Lymphocytes # (manual) 0.52 K/uL (1.2-3.4); Metamyelocytes # (manual) 0.21 K/uL (0-0); Monocytes # (manual) 0.31 K/uL (0.11-0.59)
[2018-12-06] MEDS ORDERED: levoFLOXacin 500 MG TAB PO SCH (11:35)
--- NOTE | 2018-12-06 11:40 | Hospitalist Progress Note ---
Date of Service December 06, 2018 Assessment & Plan (1) Neutropenic fever: secondary to Pseudomonas bacteremia 1st blood culture: 1 out 2 sets positive for Pseudomonas, pansenstive 2nd blood culture: pending urine culture: negative ID and Hem/Onc consulted CBC including ANC improved to 3,600 received IV Cefepime continue Levaquin 500mg po daily x 14 days from first blood culture negative date Florastor TID while taking levaquin and at least 1 week after (2) Pancytopenia: improved (3) Diarrhea: c diff negative resolved (4) Follicular lymphoma: per admitting service notes: Hx follicular lymphoma. Follows with Dr Shay. Last chemo (obinutuzumab) was 08/2018. 10/2018 became neutropenic Had bone marrow biopsy at [place] by Dr Gamez on 11/29/18 repeat CBC on Wednesday during ff up with PCP ff up with 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 Mcmahan 12/09/18 1245pm ff up with Oncologist in [facility] Subjective ff up for bacteremia seen resting in bed, comfortable in good spirits states she feels fine overall denies fever/chills, nausea, chest pain, dyspena, abdominal pain no problems with urination/BM pain from hemorrhoid resolved no pain, pruritus on the rash denies other symptoms states she is ready and woud like to be discharged today Physical Exam 2 Vital Signs (Past 24 Hours): Last Vital Signs Temp 37 C 12/06/18 07:07 Pulse 79 12/06/18 07:07 Resp 20 12/06/18 00:00 BP 112/61 12/06/18 07:07 Pulse Ox 98 12/06/18 07:07 Physical Exam: General- oriented x 3, not in distress, speaks in sentences with no effort or accessory muscle use Eyes- anicteric Neck- no JVD Lungs- clear breath sounds bilaterally no crackles no wheezing Heart- normal rate, regular rhythm; no murmurs Abdomen- normal bowel sounds, nondistended, soft, nontender maculopapular rash with some pustules- less erythematous, less raised Extremities- no pretibial edema, no calf tenderness Neuro- alert, oriented x 3; no gross focal neurologic deficits Skin- warm & dry Results & Data Laboratory Results Laboratory Results - last 24 hr 12/05/18 12/06/18 12/06/18 20:23 06:03 06:03 WBC 5.22 RBC 3.56 L Hgb 10.6 L Hct 30.6 L MCV 86.0 MCH 29.8 MCHC 34.6 RDW Std Deviation 42.1 RDW Coeff of Neil 13.4 Plt Count 208 MPV 9.7 Neutrophils % (Manual) 69.0 Lymphocytes % (Manual) 10.0 Monocytes % (Manual) 6.0 Eosinophils % (Manual) 9.0 Metamyelocytes % (Man) 4.0 Myelocytes % (Man) 2.0 Neutrophils # (Manual) 3.60 Total Absolute Neuts 3.60 Lymphocytes # (Manual) 0.52 L Total Abs Lymphocytes 0.52 L Monocytes # (Manual) 0.31 Eosinophils # (Manual) 0.47 Metamyelocytes # (Man) 0.21 H Myelocytes # (Manual) 0.10 H Toxic Granulation 1+ Sodium 140 Potassium 3.1 L 3.5 Chloride 106 Carbon Dioxide 28 Anion Gap 6.0 BUN 8 Creatinine 0.74 Est Cr Clr Drug Dosing 96.2 Est GFR ( Amer) 108.0 Est GFR (Non-Af Amer) 93.1 BUN/Creatinine Ratio 10.8 Glucose 132 H Calcium 8.1 L
[2018-12-06] MEDS ORDERED: LACTOBACILLUS ACIDOPHILUS (FLORANEX) TAB PO SCH (12:00)
--- NOTE | 2018-12-07 12:30 | Discharge Summary ---
Date of Service December 07, 2018 Admission HPI Per Admitting Provider PT is 53 y/o F with PMH follicular lymphoma, hyperthyroidism, h/o thyroidectomy , presented to ER with c/o fever x 3 days. Pt had bone marrow biopsy at [facility] by Dr Gmaez on 11/29/18. Reports later that evening started with chills, rigors and fever. Having decreased appetite, poor oral intake, generalized weakness. Vomited once last night and once this morning. Taking Tylenol and Ibuprofen for fever with limited relief. Follows with Dr Shay-oncology. Last chemo ( obinutuzumab) was 08/2018. 10/2018 became neutropenic. Denies ill contacts. Denies diarrhea, dizziness, syncope, vision changes, neck pain, neck stiffness, CP, SOB, orthopnea, palpitations, cough, sore throat, choking, otalgia, rhinorrhea, abdominal pain, paresthesias, extremity edema, rashes, urinary symptoms. Admission Exam Per Admitting Provider Vital Signs (Past 24 Hours): Last Vital Signs Temp 37.1 C 12/02/18 13:20 Pulse 78 12/02/18 14:01 Resp 25 H 12/02/18 14:01 BP 91/50 L 12/02/18 14:01 Pulse Ox 97 12/02/18 14:01 Physical Exam: General: no acute distress, WDWN Head: normocephalic, atraumatic Eyes: PERRL, EOM's intact, conjunctiva non-injected, anicteric ENT: normal inspection external ears, nose, mucous membranes dry Neck: supple, trachea midline, non-tender, ROM intact Lungs: clear, no respiratory distress, no wheezing/rhonchi/rales CV: RRR, no murmur, no pretibial edema Abd: normal BS, soft, non-tender Ext: no cyanosis, no calf tenderness Neuro: A&O x 3, no focal deficits noted, normal affect Skin: warm, dry Principal Diagnosis SEPSIS SECONDARY TO PSEUDOMONAS BACTEREMIA Discharge Exam Vital Signs (Past 24 Hours): Last Vital Signs Temp 37 C 12/06/18 07:07 Pulse 79 12/06/18 07:07 Resp 20 12/06/18 00:00 BP 112/61 12/06/18 07:07 Pulse Ox 98 12/06/18 07:07 Physical Exam: General- oriented x 3, not in distress, speaks in sentences with no effort or accessory muscle use Eyes- anicteric Neck- no JVD Lungs- clear breath sounds bilaterally no crackles no wheezing Heart- normal rate, regular rhythm; no murmurs Abdomen- normal bowel sounds, nondistended, soft, nontender maculopapular rash with some pustules- less erythematous, less raised Extremities- no pretibial edema, no calf tenderness Neuro- alert, oriented x 3; no gross focal neurologic deficits Skin- warm & dry Discharge Data Allergies Allergy/AdvReac Type Severity Reaction Status Date / Time No Known Allergies Allergy Unverified 12/02/18 12:41 Consultations 12/02/18 14:04 ED Decision to Admit Stat 12/02/18 18:04 Consult Hematology Routine 12/03/18 09:57 Consult Infectious Diseases Routine 12/03/18 13:28 Consult Gastroenterology Routine 12/04/18 12:35 Consult Dermatology Routine Ordered Studies 12/03/18 09:54 CT chest wo con Routine CT OF THE CHEST WITHOUT IV CONTRAST CLINICAL HISTORY: fever,hx of lymphoma, r/o r middle lobe pneumonia COMPARISON STUDY: Chest radiograph December 02, 2018. CT DOSE: 347.22 mGy.cm TECHNIQUE: Axial images of the chest were obtained without IV contrast. Images were reviewed in the axial, sagittal, and coronal planes. IV contrast was not administered for this examination. Automated exposure control was utilized for the study. A dose lowering technique was utilized adhering to the principles of ALARA. FINDINGS: A left subclavian Natvke-f-Svbt is in place. Note is made of a 1.7 cm left lobe thyroid nodule. Several moderately enlarged bilateral axillary lymph nodes are noted, including a 2.9 x 1.6 cm left axillary lymph node. No enlarged hilar or mediastinal lymph nodes are present. The size of the heart is normal. There is a small pericardial effusion. There are trace bilateral pleural effusions with no pneumothorax. There is evidence for anasarca. Central airways are patent. There is no consolidation to suggest pneumonia. Minimal right lower lobe opacity reflects atelectasis. No suspicious osseous lesion is noted. A few water attenuation small hepatic lesions are suboptimally assessed on this unenhanced exam but favor cysts. There are bilateral breast implants. IMPRESSION: 1. No consolidation to suggest pneumonia. 2. Small pericardial effusion. Trace bilateral pleural effusions. Mild anasarca. 3. A few moderately enlarged bilateral axillary lymph nodes which are nonspecific but would be consistent with the provided history of lymphoma. 12/03/18 13:24 CT abd pelvis oral and IV con Stat ABDOMEN AND PELVIS CT WITH IV AND ORAL CONTRAST CT DOSE: 304.86 mGy.cm HISTORY: febrile neutropenia, abdominal bloating TECHNIQUE: Multiaxial CT images of the abdomen and pelvis were performed following the use of intravenous and oral contrast. A dose lowering technique was utilized adhering to the principles of ALARA. COMPARISON STUDY: Chest CT 12/03/2018. FINDINGS: Small bilateral pleural effusions and a small pericardial effusion are again noted. Evidence for bilateral breast augmentation. No pneumoperitoneum. No pneumatosis. No suspicious lytic or blastic osseous lesions. Mild to moderate body wall edema. Small amount of ascites. A few scattered hypodense lesions seen throughout the liver. The largest in the left hepatic lobe measures 1 cm. These favor cysts. The spleen is enlarged measuring 15 cm in length. No splenic masses. The adrenal glands, pancreas, gallbladder, and kidneys are unremarkable. No hydronephrosis. Mild retroperitoneal lymphadenopathy. Left greater the right bilateral iliac lymphadenopathy. Bulky bilateral inguinal lymphadenopathy. The dominant left inguinal lymph node is necrotic and measures 4.4 x 3.5 cm. Dominant left external iliac lymph node measures 4.2 cm. Bladder is mildly thickened. This is likely due to underdistention. An intrauterine device is in good position. No bowel wall thickening or obstruction. Normal appendix. IMPRESSION: 1. Mild retroperitoneal and common iliac lymphadenopathy with bulky external iliac and inguinal lymphadenopathy. There is also splenomegaly. These findings are consistent with the patient's history of lymphoma. 2. Mild to moderate body wall edema with a small amount of ascites. 3. Small bilateral pleural effusions and a small pericardial effusion. 4. No bowel wall thickening or obstruction. 5. Normal appendix. Hospital Course (1) Pseudomonas sepsis: (1) Neutropenic fever: secondary to Pseudomonas bacteremia Hx follicular lymphoma. Follows with Dr Shay. Last chemo (obinutuzumab) was 08/2018. 10/2018 became neutropenic Had bone marrow biopsy at [facility] by Dr Gamez on 11/29/18 Presented to ER with c/o fever/chills, rigors, decreased appetite x 3 days, and 2 episodes vomiting In ER T: 38.3, P: 96-101, R: 16-26, BP: 94/52. WBC: 1.4 (was 1.5 on 11/28/18). RBC: 3.3 (was 4.1), Hgb: 9.9 (was 12.3), Plt:105 (197), Neut: 0.01. Negative influenza swab. UA: appears contaminated. CXR: Mild opacity within the medial right lung base which may reflect pneumonia or atelectasis. CT chest: negative for Pneumonia 1st blood culture: 1 out 2 sets positive for Pseudomonas, pansensitive 2nd blood culture: pending urine culture: negative ID Dr. Canales and Hem/Onc Dr. Molina consulted CBC including ANC improved from 100 to 3,600 received IV Cefepime while admitted, significantly improved ID recommends: Levaquin 500mg po daily x 14 days from first negative culture Florastor TID while taking levaquin and at least 1 week after to prevent diarrhea (2) Pancytopenia: improved (3) Diarrhea: c diff negative resolved (4) Follicular lymphoma: per admitting service notes: Hx follicular lymphoma. Follows with Dr Shay. Last chemo (obinutuzumab) was 08/2018. 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 Mcmaahn 12/09/18 1245pm ff up with Oncologist in [facility] as scheduled Total Time Total Time Spent Total Time Spent (In Minutes): 45 minutes Discharge Plan Discharge Items Patient Disposition: Home - Self-Care Reason For Visit: FEVER Discharge Diagnosis: PSEUDOMONAS BACTEREMIA Discharge Goals: Diagnostic testing and Therapeutic intervention Activity: As commented below Activity Comment: RESUME ACTIVITY GRADUALLY TOLERATED, NO HEAVY EXERTION Lifting: Wait until after follow-up appointment Exercise Comment: LIGHT EXERCISE ONLY Non-emergency contact: Primary Care Provider and Oncologist Call non-emergency contact if: you have any medication questions, your symptoms worsen, your pain is not controlled, your pain is worsening, your pain is unusual for you, your pain is concerning for you and you have a fever Follow-up/Referrals: Lucian Mcmahan MD [Primary Care Provider] - 12/09/18 12:45 pm Diet: Regular Addtl Provider Instructions: DRINK PLENTY OF FLUIDS. DO NOT TAKE PROBIOTICS WHEN YOUR ABSOLUTE NEUTROPHIL COUNT IS BELOW 1,500. PLEASE RETURN TO THE ER IMMEDIATELY IF WITH RECURRENCE/WORSENING OF SYMPTOMS. Prescriptions: New levofloxacin 500 mg Tablet 500 mg PO DAILY@1100 13 Days Qty: 13 RF: 0 Lactobacillus acidoph-L.bulgar [Floranex] 1 million cell Tablet 4 tab PO TIDM 21 Days Qty: 84 RF: 1 Continue multivitamin Tablet 1 tab PO QAM RF: 0 levonorgestrel [Mirena] 20 mcg/24 hr (5 years) Intrauterine Device 1 applic Intrauterine UD RF: 0 ferrous sulfate [iron] 325 mg (65 mg iron) Tablet 325 mg PO QAM RF: 0 zinc 50 mg Tablet 50 mg PO QAM RF: 0 calcium carbonate-vitamin D3 [Calcium 500 With D] 500 mg(1,250mg) -400 unit Tablet 1 tab PO QAM RF: 0 omega 1-zss-kkx-fish oil [Fish Oil] 1,000 mg (120 mg-180 mg) Capsule 1 cap PO UD PRN (Reason: Other) RF: 0 biotin 5,000 mcg Tablet,Disintegrating 10,000 mcg PO QAM RF: 0 acetaminophen [Tylenol Extra Strength] 500 mg Tablet 1,000 mg PO Q6H PRN (Reason: Fever) RF: 0 ibuprofen 400 mg Tablet 400 mg PO QID PRN (Reason: Fever) RF: 0 Stand-Alone Forms: [facility] Discharge Orders: Discharge Order (Routine); Ordered 12/06/18 Ordered By: Brad Alarcon Admission Data Admit Date/Time: 12/02/18 15:28 Attending Provider: Brad Alarcon Admit Provider: Destiny Bishop Primary Care Provider: Lucian Mcmahan Other Providers: Destiny Bishop ; Leighann Molina ; Jim Sharma ; Billie Canales ; Michael Dorsey ; Kizzy Luis ; Summer Lopez ; Gilberto Godfrey ; Magalis Starkey ; Genevieve Chacon ; Venus Juarez ; Delonte Barry ; Nirmal Garcia ; Ping Fernando ; Chari Noel ; Celia Mirza ; Mira Nguyen ; Alden Polo Service: Telemetry Other Interventions: Discharge Summary Assessment (RN) Last Done: 12/06/18 12:01 DC Date/Time DO NOT enter until pt leaves facility: 12/06/18 12:50
== END 2018-12-06 12:50 | disposition home or self-care (01) | DRG 872 ==
LOC: ED 10:59 → 2W 15:28